=== PATIENT | male | born 1960 | race Caucasian/White ===

== ENCOUNTER 2019-08-06 10:32 | Inpatient (IN) | payer SELFPAY ==
[2019-08-06] MEDS ORDERED: ENOXAPARIN 100 MG/ML SYR SQ ONE (10:59)
[2019-08-06] MEDS ORDERED: METOPROLOL TARTRATE 5 MG/5 ML INJ IV ONE (11:00)
[2019-08-06] MEDS ORDERED: NA CHLORIDE 0.9% 1,000 ML ONE (11:00)
[2019-08-06 11:24] LABS: Basophils % 3.9 % (0-1.3); Hematocrit 46.5 % (39.6-49.0); Lymphocytes % 28.5 % (15.3-44.8); MPV 9.7 fL (7.6-11.3); RBC Red Blood Cell Count 5.16 M/uL (4.33-5.43)
[2019-08-06 11:27] LABS: Protime INR 1.11
[2019-08-06 11:49] LABS: ALT/SGPT 35 U/L (12-78); AST/SGOT 24 U/L (15-37); Albumin 3.8 g/dL (3.4-5.0); Alkaline Phosphatase 78 U/L (45-117); BUN Blood Urea Nitrogen 19 mg/dL (7-18); Bicarbonate 29 mmol/L (21-32); Bilirubin Direct 0.3 mg/dL (0-0.2); Bilirubin Total 0.9 mg/dL (0.2-1.0); Glucose Level 123 mg/dL (74-106); Magnesium 1.9 mg/dL (1.8-2.4); NT PRO-BNP 826 pg/mL (<125); Potassium 3.7 mmol/L (3.5-5.1); Protein, Total 7.8 g/dL (6.4-8.2); Sodium Level 142 mmol/L (136-145); Thyroid Stimulating Hormone 0.713 uIU/mL (0.360-3.740); Troponin (Emerg Dept Use Only) < 0.02 ng/mL (0.0-0.045)
--- NOTE | 2019-08-06 11:54 | RAD REPORT ---
EXAM DESCRIPTION: RAD - Chest Single View - 08/06/2019 11:41 am CLINICAL HISTORY: Atrial fibrillation COMPARISON: None. TECHNIQUE: AP portable chest image was obtained 1131 hours . FINDINGS: No peripheral mass, consolidation or edema. Heart and vasculature are normal. No measurabl e pleural effusion and no pneumothorax. No acute bony abnormality seen. No acute aortic findings susp ected. IMPRESSION: No acute cardiopulmonary process.
[2019-08-06] MEDS ORDERED: METOPROLOL TAR 50 MG TAB ONE (11:55)
--- NOTE | 2019-08-06 12:01 | ER ---
Nurse's Notes [facility] Name: Parrish Hickey Age: 59 yrs Sex: Male : 1960 Arrival Date: 08/06/2019 Time: 10:37 Bed 2 Private MD: Diagnosis: Atrial fibrillation and flutter-new onset Presentation: 08/06 10:41 Presenting complaint: Patient states: was having an outpatient EKG done as part of cardiac clearance for hernia repair and was in Afib RVR with no history, pt denies chest pain, SOB, palpitations. Transition of care: patient was not received from another setting of care. Onset of symptoms was August 06, 2019. Risk Assessment: Do you want to hurt yourself or someone else? Patient reports no desire to harm self or others. Initial Sepsis Screen: Does the patient meet any 2 criteria? No. Patient's initial sepsis screen is negative. Does the patient have a suspected source of infection? No. Patient's initial sepsis screen is negative. Care prior to arrival: None. 10:41 Method Of Arrival: Wheelchair 10:41 Acuity: QUANG 3 iw Historical: - Allergies: 10:45 No Known Allergies; iw - Home Meds: 10:45 Tribenzor 40-10-25 mg oral tab 1 tab once daily [Active]; iw - PMHx: 10:45 Hypertension; iw - PSHx: 10:45 Hernia repair; iw - Immunization history:: Adult Immunizations not up to date. - Social history:: Smoking status: Patient/guardian denies using tobacco. - Ebola Screening: : Patient negative for fever greater than or equal to 101.5 degrees Fahrenheit, and additional compatible Ebola Virus Disease symptoms Patient denies exposure to infectious person Patient denies travel to an Ebola-affected area in the 21 days before illness onset No symptoms or risks identified at this time. Screenin:20 Abuse screen: Denies threats or abuse. Denies injuries from another. Nutritional jl7 screening: No deficits noted. Tuberculosis screening: No symptoms or risk factors identified. Fall Risk IV access (20 points). Total Peña Fall Scale indicates No Risk (0-24 pts). Assessment: 10:45 General: Appears in no apparent distress. comfortable, well groomed, well developed, jl7 well nourished, Behavior is calm, cooperative, appropriate for age. Pain: Denies pain. Neuro: Level of Consciousness is awake, alert, obeys commands, Oriented to person, place, time, situation. Cardiovascular: Denies chest pain, fatigue, lightheadedness, nausea, palpitations, shortness of breath, Patient's skin is warm and dry. Rhythm is atrial fibrillation with rapid ventricular response. Respiratory: Airway is patent Respiratory effort is even, unlabored, Respiratory pattern is regular, symmetrical, Denies shortness of breath. GI: No signs and/or symptoms were reported involving the gastrointestinal system. : No signs and/or symptoms were reported regarding the genitourinary system. EENT: No signs and/or symptoms were reported regarding the EENT system. Derm: Skin is pink, warm \T\ dry. Musculoskeletal: No signs and/or symptoms reported regarding the musculoskeletal system. 11:57 Reassessment: Patient appears in no apparent distress at this time. No changes from jl7 previously documented assessment. Patient and/or family updated on plan of care and expected duration. Pain level reassessed. Patient is alert, oriented x 3, equal unlabored respirations, skin warm/dry/pink. 12:58 Reassessment: Patient appears in no apparent distress at this time. Patient and/or sg family updated on plan of care and expected duration. Pain level reassessed. Patient is alert, oriented x 3, equal unlabored respirations, skin warm/dry/pink. pt given diet tray at this time, tolerating well, no assistance needed at this time. Vital Signs: 10:45 BP 149 / 92; Pulse 123; Resp 18 S; Temp 98.2(TE); Pulse Ox 99% on R/A; Weight 99.34 kg; iw Height 5 ft. 10 in. (177.80 cm); Pain 0/10; 11:00 BP 142 / 100; Pulse 117; Resp 16 S; Pulse Ox 99% on R/A; Pain 0/10; jl7 11:15 BP 141 / 88; Pulse 96; Resp 16 S; Pulse Ox 99% on R/A; jl7 11:57 BP 132 / 82; Pulse 92; Resp 16 S; Pulse Ox 100% on R/A; jl7 10:45 Body Mass Index 31.42 (99.34 kg, 177.80 cm) iw ED Course: 10:37 Patient arrived in ED. sg 10:39 Sampson Flores, TITA is Primary Nurse. jl7 10:42 EKG done, by loader technician. reviewed by Guanakito Sorto MD. at1 10:43 Triage completed. iw 10:45 Patient has correct armband on for positive identification. Placed in gown. Bed in low jl7 position. Call light in reach. Side rails up X 1. color television console monitor on. Pulse ox on. NIBP on. 10:47 Arm band placed on. iw 10:49 Bryson Layton NP is PHCP. pm1 10:49 Cullen Perry MD is Attending Physician. pm1 10:57 Initial lab(s) drawn, by ga, sent to lab. Inserted saline lock: 18 gauge in right bb antecubital area, using aseptic technique. Blood collected. 11:45 XRAY Chest (1 view) In Process Unspecified. EDMS 11:59 Ross Mota MD is Hospitalizing Provider. pm1 13:05 No provider procedures requiring assistance completed. Patient admitted, IV remains in sg place. intact, No redness/swelling at site. Administered Medications: 11:07 Drug: NS 0.9% 1000 ml Route: IV; Rate: 1000 ml; Site: right upper arm; jl7 11:08 Drug: Lopressor 5 mg Route: IVP; Site: right upper arm; jl7 11:30 Follow up: Response: No adverse reaction; Cardiac rhythm changed jl7 11:17 Drug: Lovenox 1 mg/kg Route: Sub-Q; Site: right lower abdomen; jl7 11:57 Follow up: Response: No adverse reaction jl7 11:56 Drug: Lopressor (metoprolol TARTRATE) 50 mg Route: PO; jl7 11:57 Follow up: Response: No adverse reaction jl7 Outcome: 11:59 Decision to Hospitalize by Provider. pm1 13:05 Admitted to Tele accompanied by nurse, via wheelchair, room 430, on monitor, with sg chart, Report called to TITA Marrufo 13:05 Condition: stable 13:05 Instructed on the need for admit, safety practices, Demonstrated understanding of instructions. 13:19 Patient left the ED. jl7 Signatures: Dispatcher [employer] EDUT Siva Guerrero RN RN sg Ballard, Brenda, RN RN bb Williams, Irene, RN RN iw Gonzales Sonia, clinical informatics spec EKG Tat1 Bryson Layton, SUPERVISOR [employer]AL [employer]URNITURE [employer]SEMBLY SUPERVISOR METAL FURNITURE ASSEMBLY pm1 Sampson Flores, RN RN jl7
--- NOTE | 2019-08-06 12:01 | EDPHYS ---
Physician Documentation [facility] Name: Parrish Hickey Age: 59 yrs Sex: Male : 1960 Arrival Date: 08/06/2019 Time: 10:37 Bed 2 Private MD: ED Physician Cullen Perry HPI: 08/06 11:06 This 59 yrs old Male presents to ER via Wheelchair with complaints of A. Fib- pm1 new onset. 11:06 The patient presents with a history of new onset atrial fibrillation on ECG during pm1 preoperative work up for hernia repair. Context: The symptoms occur without known cause. Onset: The symptoms/episode began/occurred unknown, just discovered today. Modifying factors: The symptoms are aggravated by nothing. The symptoms are alleviated by nothing. 11:06 Associated signs and symptoms: The patient has no apparent associated signs or pm1 symptoms, Pertinent negatives: chest pain, fever, nausea, SOB, syncope, near-syncope, vomiting. Severity of symptoms: Pain is currently a 0 / 10. The patient has not experienced similar symptoms in the past. The patient has not recently seen a physician. Historical: - Allergies: 10:45 No Known Allergies; iw - Home Meds: 10:45 Tribenzor 40-10-25 mg oral tab 1 tab once daily [Active]; iw - PMHx: 10:45 Hypertension; iw - PSHx: 10:45 Hernia repair; iw - Immunization history:: Adult Immunizations not up to date. - Social history:: Smoking status: Patient/guardian denies using tobacco. - Ebola Screening: : Patient negative for fever greater than or equal to 101.5 degrees Fahrenheit, and additional compatible Ebola Virus Disease symptoms Patient denies exposure to infectious person Patient denies travel to an Ebola-affected area in the 21 days before illness onset No symptoms or risks identified at this time. ROS: 11:06 Constitutional: Negative for fever, chills, and weight loss, Eyes: Negative for injury, pm1 pain, redness, and discharge, ENT: Negative for injury, pain, and discharge, Neck: Negative for injury, pain, and swelling, Cardiovascular: Negative for chest pain, palpitations, and edema, Respiratory: Negative for shortness of breath, cough, wheezing, and pleuritic chest pain, Abdomen/GI: Negative for abdominal pain, nausea, vomiting, diarrhea, and constipation, Back: Negative for injury and pain, : Negative for injury, bleeding, discharge, and swelling, MS/Extremity: Negative for injury and deformity, Skin: Negative for injury, rash, and discoloration, Neuro: Negative for headache, weakness, numbness, tingling, and seizure. Exam: 11:06 Constitutional: This is a well developed, well nourished patient who is awake, alert, pm1 and in no acute distress. Head/Face: Normocephalic, atraumatic. Neck: Trachea midline, no thyromegaly or masses palpated, and no cervical lymphadenopathy. Supple, full range of motion without nuchal rigidity, or vertebral point tenderness. No Meningismus. Chest/axilla: Normal chest wall appearance and motion. Nontender with no deformity. No lesions are appreciated. Cardiovascular: Regular rate and rhythm with a normal S1 and S2. No gallops, murmurs, or rubs. Normal PMI, no JVD. No pulse deficits. Respiratory: Lungs have equal breath sounds bilaterally, clear to auscultation and percussion. No rales, rhonchi or wheezes noted. No increased work of breathing, no retractions or nasal flaring. Abdomen/GI: Soft, non-tender, with normal bowel sounds. No distension or tympany. No guarding or rebound. No evidence of tenderness throughout. Back: No spinal tenderness. No costovertebral tenderness. Full range of motion. Skin: Warm, dry with normal turgor. Normal color with no rashes, no lesions, and no evidence of cellulitis. MS/ Extremity: Pulses equal, no cyanosis. Neurovascular intact. Full, normal range of motion. 11:06 Neuro: Orientation: is normal, Motor: is normal, moves all fours. Vital Signs: 10:45 BP 149 / 92; Pulse 123; Resp 18 S; Temp 98.2(TE); Pulse Ox 99% on R/A; Weight 99.34 kg; iw Height 5 ft. 10 in. (177.80 cm); Pain 0/10; 11:00 BP 142 / 100; Pulse 117; Resp 16 S; Pulse Ox 99% on R/A; Pain 0/10; jl7 11:15 BP 141 / 88; Pulse 96; Resp 16 S; Pulse Ox 99% on R/A; jl7 11:57 BP 132 / 82; Pulse 92; Resp 16 S; Pulse Ox 100% on R/A; jl7 10:45 Body Mass Index 31.42 (99.34 kg, 177.80 cm) iw MDM: 10:49 Patient medically screened. pm1 11:56 Data reviewed: vital signs. Data interpreted: Pulse oximetry: on room air is 99 %. pm1 Interpretation: normal. Counseling: I had a detailed discussion with the patient and/or guardian regarding: the historical points, exam findings, and any diagnostic results supporting the discharge/admit diagnosis, lab results, radiology results, the need for further work-up and treatment in the hospital. 11:58 Physician consultation: Ross Mota MD was called at 12:01, was contacted at 12:02, pm1 regarding admission, patient's condition, and will see patient in ED. 08/06 10:55 Order name: Basic Metabolic Panel; Complete Time: 11:55 pm1 08/06 10:55 Order name: CBC with Diff; Complete Time: 17:37 pm1 08/06 10:55 Order name: LFT's; Complete Time: 11:55 pm1 08/06 10:55 Order name: Magnesium; Complete Time: 11:55 pm1 08/06 10:55 Order name: NT PRO-BNP; Complete Time: 11:55 pm1 08/06 10:55 Order name: PT-INR; Complete Time: 11:43 pm1 08/06 10:55 Order name: Troponin (emerg Dept Use Only); Complete Time: 11:55 pm1 08/06 10:55 Order name: XRAY Chest (1 view); Complete Time: 12:24 pm1 08/06 10:55 Order name: TSH; Complete Time: 11:55 pm1 08/06 11:59 Order name: CBC Smear Scan EDMS 08/06 12:34 Order name: Manual Differential; Complete Time: 17:37 EDMS 08/06 10:55 Order name: EKG; Complete Time: 10:56 pm1 08/06 10:55 Order name: Cardiac monitoring; Complete Time: 10:57 pm1 08/06 10:55 Order name: EKG - Nurse/Tech; Complete Time: 10:57 pm1 08/06 10:55 Order name: IV Saline Lock; Complete Time: 10:57 pm1 08/06 10:55 Order name: Labs collected and sent; Complete Time: 10:57 pm1 08/06 10:55 Order name: O2 Per Protocol; Complete Time: 10:57 pm1 08/06 10:55 Order name: O2 Sat Monitoring; Complete Time: 10:57 pm1 08/06 12:29 Order name: CONS Pharmacy Consult EDMS 08/06 12:29 Order name: Heart Healthy EDIN Administered Medications: 11:07 Drug: NS 0.9% 1000 ml Route: IV; Rate: 1000 ml; Site: right upper arm; jl7 11:08 Drug: Lopressor 5 mg Route: IVP; Site: right upper arm; jl7 11:30 Follow up: Response: No adverse reaction; Cardiac rhythm changed jl7 11:17 Drug: Lovenox 1 mg/kg Route: Sub-Q; Site: right lower abdomen; jl7 11:57 Follow up: Response: No adverse reaction jl7 11:56 Drug: Lopressor (metoprolol TARTRATE) 50 mg Route: PO; jl7 11:57 Follow up: Response: No adverse reaction jl7 Disposition: 21:22 Co-signature as Attending Physician, Cullen Perry MD. rn Disposition: 08/06/19 11:59 Hospitalization ordered by Ross Mota for Observation. Preliminary diagnosis is Atrial fibrillation and flutter - new onset. - Bed requested for Telemetry/MedSurg (observation). - Status is Observation. jl7 - Condition is Stable. - Problem is new. - Symptoms have improved. UTI on Admission? No Signatures: Dispatcher [employer] EDIN Magalipaige Hetal Quynh Saha, RN Cullen Lincoln MD MD rn Marinas, Patrick, [employer] SUPERVISOR pm1 Sampson Flores RN RN jl7 Corrections: (The following items were deleted from the chart) 12:48 11:59 Hospitalization Ordered by Ross Mota MD for Observation. Preliminary bd diagnosis is Atrial fibrillation and flutter - new onset. Bed requested for Telemetry/MedSurg (observation). Status is Observation. Condition is Stable. Problem is new. Symptoms have improved. UTI on Admission? No. pm1 13:19 12:48 08/06/2019 11:59 Hospitalization Ordered by Ross Mota MD for Observation. jl7 Preliminary diagnosis is Atrial fibrillation and flutter - new onset. Bed requested for Telemetry/MedSurg (observation). Status is Observation. Condition is Stable. Problem is new. Symptoms have improved. UTI on Admission? No. bd
[2019-08-06] MEDS ORDERED: ACETAMINOPHEN 500 MG TAB PO PRN (12:24)
[2019-08-06] MEDS ORDERED: ONDANSETRON 4 MG/2 ML VIAL IV PRN (12:24)
[2019-08-06] MEDS ORDERED: MORPHINE 2 MG/ML SYR IV PRN (12:24)
--- NOTE | 2019-08-06 12:28 | P.HP ---
Certification for Inpatient Patient admitted to: Observation With expected LOS: <2 Midnights Patient will require the following post-hospital care: None Practitioner: I am a practitioner with admitting privileges, knowledge of patient current condition, hospital course, and medical plan of care. Services: Services provided to patient in accordance with Admission requirements found in Title 42 Section 412.3 of the Code of Federal Regulations Patient History Date of Service: 08/06/19 Reason for admission: AFib with RVR History of Present Illness: 59-year-old male with past medical history hypertension admitted with AFib with RVR . Patient presented for EKG for preop screening for hernia repair and was found to have AFib with RVR in the ER and was given IV metoprolol to control the rate He was admitted for further management. Patient denies any chest pain or shortness of breath No fever no chills Denies any nausea vomiting or diaphoresis Denies any alcohol or caffeine intake Allergies No Known Allergies Allergy (Verified 08/06/19 12:32) Home medications list reviewed: Yes Home Medications: Olmesartan/Amlodipin/Hcthiazid [Cyxfcgm-Fhneuh-Dmks 40-10-25Mg] 1 tab PO DAILY 08/06/19 - Past Medical/Surgical History Past Medical History: Reviewed- Non-Contributory -: Hypertension Past Surgical History: Reviewed- Non-Contributory -: Hernia repair - Family History Family History: Reviewed- Non-Contributory - Social History Smoking Status: Never smoker Alcohol use: No Review of Systems 10-point ROS is otherwise unremarkable General: Unremarkable ENT: Unremarkable Respiratory: Unremarkable Physical Examination - Vital Signs Temperature: 98.2 F Blood Pressure: 149/92 Pulse: 112 - Physical Exam General: Alert, In no apparent distress, Obese HEENT: Atraumatic, Normocephalic Neck: Supple, 2+ carotid pulse no bruit Respiratory: Clear to auscultation bilaterally, Normal air movement Cardiovascular: Other (tachycardia ), Irregular heart rate/rhythm Capillary refill: <2 Seconds Gastrointestinal: Soft and benign, W/out hepatosplenomegaly Musculoskeletal: No clubbing, No swelling Integumentary: No rashes Neurological: Normal speech, Normal strength at 5/5 x4 extr Lymphatics: No axilla or inguinal lymphadenopathy Urinary: Other (no bladder distention ) External genitalia: Deferred Rectal: Deferred - Studies Laboratory Data (last 24 hrs) 11/19/19 10:50: PT 13.0 H, INR 1.11 08/06/19 10:50: WBC 6.9, Hgb 16.6, Hct 46.5, Plt Count 227 08/06/19 10:50: Sodium 142, Potassium 3.7, BUN 19 H, Creatinine 0.90, Glucose 123 H, Magnesium 1.9, Total Bilirubin 0.9, AST 24, ALT 35, Alkaline Phosphatase 78 Assessment and Plan - Problems (Diagnosis) (1) New onset a-fib Current Visit: Yes Status: Acute Plan: New onset AFib Monitor under telemetry Started on beta-enrico for rate control Patient denies any previous history Will get an echocardiogram T3-T4 and TSH levels along with lipid panel and A1c cardiology consult start on Lovenox and aspirin (2) Hypertension Current Visit: Yes Status: Chronic Plan: Continue home medications and titrate as needed (3) Obesity Current Visit: Yes Status: Chronic Plan: Advised lifestyle modification Discharge Plan: Home Plan to discharge in: 24 Hours - Advance Directives Does patient have a Living Will: No Does patient have a Durable POA for Healthcare: No Time Spent Managing Pts Care (In Minutes): 42
[2019-08-06 12:34] LABS: Anisocytosis 1+; Blood Morphology Comment NOTED (NOT SEEN); Macrocytosis 1+; Platelet Estimate ADEQ
[2019-08-06 13:35] VITALS: BMI 31.4
[2019-08-06 16:32] LABS: Urine Appearance CLEAR; Urine Bilirubin NEGATIVE (NEG); Urine Blood NEGATIVE (NEG); Urine Color DK YELLOW; Urine Glucose NEGATIVE (NEG); Urine Protein NEGATIVE (NEG); Urine Specific Gravity 1.025 (1.005-1.030); Urine Urobilinogen 0.2 mg/dL (0.2-1.0); Urine pH 6.5 (5.0-7.0)
[2019-08-06 17:03] LABS: Urine Bacteria <20 /HPF (NONE SEEN); Urine Culture Reflex Order NOT NEEDED; Urine Mucus 3+ /HPF (NONE SEEN)
[2019-08-06] MEDS: METOPROLOL TAR 50 MG TAB PO SCH (20:25)
[2019-08-06] MEDS: ENOXAPARIN 100 MG/ML SYR SQ SCH (20:26)
[2019-08-07 04:17] LABS: Absolute Lymphocytes (CBC) 2.6 K/uL (0.7-4.9); Basophils % 2.1 % (0-1.3); Hematocrit 45.4 % (39.6-49.0); Lymphocytes % 37.1 % (15.3-44.8); MPV 9.6 fL (7.6-11.3); RBC Red Blood Cell Count 4.97 M/uL (4.33-5.43)
[2019-08-07 04:50] LABS: BUN Blood Urea Nitrogen 20 mg/dL (7-18); Bicarbonate 26 mmol/L (21-32); Glucose Level 118 mg/dL (74-106); Potassium 3.5 mmol/L (3.5-5.1); Sodium Level 139 mmol/L (136-145)
[2019-08-07] MEDS ORDERED: [UNRECOGNIZED DRUG - OTHER] PO SCH (09:00)
[2019-08-07] MEDS ORDERED: AMLODIPIN PO SCH (09:00)
[2019-08-07] MEDS ORDERED: VALSARTAN 160 MG TAB PO SCH (09:00)
[2019-08-07] MEDS ORDERED: HCTHIAZID PO SCH (09:00)
[2019-08-07] MEDS ORDERED: OLMESARTAN PO SCH (09:00)
[2019-08-07] MEDS ORDERED: hydroCHLOROthiazide 25 MG TAB PO SCH (09:00)
[2019-08-07] MEDS ORDERED: AMLODIPINE 10 MG TAB PO SCH (09:00)
[2019-08-07] MEDS ORDERED: ASPIRIN EC 81 MG TAB PO SCH (09:00)
[2019-08-07 09:19] VITALS: O2SAT 96
[2019-08-07] MEDS: ENOXAPARIN 100 MG/ML SYR SQ SCH (09:19)
[2019-08-07] MEDS: METOPROLOL TAR 50 MG TAB PO SCH (09:20)
--- NOTE | 2019-08-07 12:03 | P.DS ---
Admission Date: 08/06/19 Discharge Date: 08/07/19 Disposition: ROUTINE DISCHARGE Discharge Condition: GOOD Reason for Admission: AFib with RVR - Problems (1) New onset a-fib Status: Acute (2) Hypertension Status: Chronic (3) Obesity Status: Chronic Brief History of Present Illness: 59-year-old male with past medical history hypertension admitted with AFib with RVR . Patient presented for EKG for preop screening for hernia repair and was found to have AFib with RVR in the ER and was given IV metoprolol to control the rate He was admitted for further management. Patient denies any chest pain or shortness of breath No fever no chills Denies any nausea vomiting or diaphoresis Denies any alcohol or caffeine intake Hospital Course: He was admitted and was monitor under telemetry. He was start on beta enrico and also anticoagulation. He underwent an echocardiogram and a cardiology consult. Cardiology recommended starting him on Toprol-XL and Xarelto . He was cleared for surgery for hernia repair by cardiology. It was recommended to start on anticoagulation after the surgery. He was in AFib with rate control throughout hospital course. He wanted to go home and is being discharged home today in a stable condition with advice to follow up with PCP in 1 week and also with Cardiology in 1-2 weeks Vital Signs/Physical Exam: Temp Pulse Resp BP Pulse Ox 97.4 F 104 H 20 153/72 H 95 08/07/19 08:00 08/07/19 09:21 08/07/19 08:00 08/07/19 09:21 08/07/19 08:00 General: Alert, In no apparent distress, Obese HEENT: Atraumatic, Normocephalic Neck: Supple, 2+ carotid pulse no bruit Respiratory: Clear to auscultation bilaterally Cardiovascular: Irregular heart rate/rhythm Gastrointestinal: Soft and benign, W/out hepatosplenomegaly Neurological: Normal strength at 5/5 x4 extr Laboratory Data at Discharge: WBC 7.1 K/uL (4.3-10.9) 08/07/19 03:51 Hgb 15.8 g/dL (13.6-17.9) 08/07/19 03:51 Hct 45.4 % (39.6-49.0) 08/07/19 03:51 Plt Count 216 K/uL (152-406) 08/07/19 03:51 PT 13.0 SECONDS (9.5-12.5) H 08/06/19 10:50 INR 1.11 08/06/19 10:50 Sodium 139 mmol/L (136-145) 08/07/19 03:51 Potassium 3.5 mmol/L (3.5-5.1) 08/07/19 03:51 BUN 20 mg/dL (7-18) H 08/07/19 03:51 Creatinine 0.78 mg/dL (0.55-1.3) 08/07/19 03:51 Glucose 118 mg/dL (74-106) H 08/07/19 03:51 Magnesium 1.9 mg/dL (1.8-2.4) 08/06/19 10:50 Total Bilirubin 0.9 mg/dL (0.2-1.0) 08/06/19 10:50 AST 24 U/L (15-37) 08/06/19 10:50 ALT 35 U/L (12-78) 08/06/19 10:50 Alkaline Phosphatase 78 U/L (45-117) 08/06/19 10:50 Home Medications: Olmesartan/Amlodipin/Hcthiazid [Zpyfyba-Squtfj-Gzhs 40-10-25Mg] 1 tab PO DAILY 08/06/19 Metoprolol Succinate 50 mg PO DAILY #30 tab.er.24h 08/07/19 New Medications: Metoprolol Succinate 50 mg PO DAILY #30 tab.er.24h Diet: AHA Activity: Ad sridhar Followup: Froilan Robert MD [ACTIVE - CAN ADMIT] - 1-2 Weeks (Fruit And Vegetable Inspector- as per physician instruction) Time spent managing pt's care (in minutes): 35
--- NOTE | 2019-08-07 12:13 | CON ---
Date of Consultation: 08/07/2019 Reason For Consultation: Atrial fibrillation. History Of Present Illness: Mr. Hickey is a 59-year-old white male, no previous cardiac history. He has a history of hypertension, for which he takes Tribenzor. Has no cardiac symptoms. He denied chest pain, shortness of breath, nausea, vomiting, diaphoresis, PND, orthopnea, pedal edema, palpitat ions, or syncope. He was having a preop EKG for hernia surgery by Dr. Solano in [facility] and w as found to have atrial fibrillation. He was sent to the emergency room. He was never aware of his heart palpitating. Unknown duration of atrial fibrillation. The patient is planning to have a ventr al hernia surgery prior to a job that he is going to get in [place]. This surgery is schedule d for this Monday in 2 days. Past Medical History: As stated above. Allergies: NONE. Review of Systems: Negative. Social History: Negative. Family History: Negative. Medications: Tribenzor. Physical Examination: Vital Signs: Stable. Atrial fibrillation at 100. HEENT: Negative. Neck: Supple. No bruit. Chest: Clear. Cardiac: Revealed atrial fibrillation. No murmurs, gallops, or rubs. Abdomen: Benign. Extremities: Revealed no clubbing, cyanosis, or edema. Diagnostic Data: Pretty normal. His chest x-ray was negative. EKG showed atrial fibrillation. BNP was 826. Impression And Plan: Atrial fibrillation, persistent, unknown duration, asymptomatic. I think Mr. Hickey has an echo pending today. We will see what that shows prior to make any final decisions. I think he needs to continue her Tribenzor. I will add a low-dose metoprolol to his regimen. He can start aspirin for now. He can go ahead and have the surgery done in 2 days. After that, I am going to give him a prescription today for Xarelto. We can start the Xarelto right after his surgery, and I will see him after that and we will deal with the atrial fibrillation later. He will eventually n eed an outpatient stress test and make a decision regarding cardioversion or keep him in rate control on the Xarelto. RANDY/MODL Voice ID: [id number] Report ID: [id number]
[2019-08-07 13:58] VITALS: BP 137/77; TEMP 97.6
--- NOTE | 2019-08-08 08:14 | ECHO ---
HEIGHT: 5 ft 10 in WEIGHT: 219 lb 0 oz DATE OF STUDY: 08/07/[address]: Yousif Mota DO 2-DIMENSIONAL: YES M.MODE: YES DOPPLER: YES COLOR FLOW: YES TDS: NO PORTABLE: NO DEFINITY: NO BUBBLE STUDY: NO DIAGNOSIS: ATRIAL FIBRILLATION WITH RAPID VENTRICULAR REPONSE CARDIAC HISTORY: CATHERIZATION: NO SURGERY: NO PROSTHETIC VALVE: NO PACEMAKER: NO MEASUREMENTS (cm) DIASTOLIC (NORMALS) SYSTOLIC (NORMALS) IVSd 1.3 (0.6-1.2) LA Diam 3.7 (1.9-4.0) LVEF 51% LVIDd 5.7 (3.5-5.7) LVIDs 4.7 (2.0-3.5) %FS 18% LVPWd 1.3 (0.6-1.2) Ao Diam 2.6 (2.0-3.7) 2 DIMENSIONAL ASSESSMENT: RIGHT ATRIUM: NORMAL LEFT ATRIUM: NORMAL RIGHT VENTRICLE: NORMAL LEFT VENTRICLE: NORMAL TRICUSPID VALVE: NORMAL MITRAL VALVE: NORMAL PULMONIC VALVE: NORMAL AORTIC VALVE: NORMAL PERICARDIAL EFFUSION: NONE AORTIC ROOT: NORMAL LEFT VENTRICULAR WALL MOTION: PARADOXICAL SEPTUM. DOPPLER/COLOR FLOW: NORMAL COMMENTS: NORMAL LEFT VENTRICULAR EJECTION SIZE AND FUNCTION. PARADOXICAL SEPTUM. NORMAL LEFT ATRIAL SIZE. NO CLOT. ATRIAL FIBRILLATION. TECHNOLOGIST: Emeka LOPEZ
== END 2019-08-07 13:33 | disposition home or self-care (01) | DRG 310 ==
LOC: ER 10:32 → ERHOLD 12:26 → 4TH 13:05
PROVIDERS: ADMIT Family Medicine; ATTEND Family Medicine
DX: I48.91 Unspecified atrial fibrillation (principal); I10 Essential (primary) hypertension; E66.9 Obesity, unspecified; Z68.31 Body mass index [BMI] 31.0-31.9, adult
CPT/HCPCS: 36415; 71045; 80048; 80076; 81001; 83735; 83880; 84443; 84484; 85025; 85610; 93005; 93306; 94760; 96372; 96374; 99285; J1650; J7030

== ENCOUNTER 2022-03-27 12:14 | Inpatient (IN) | payer SELFPAY ==
[2022-03-27 14:06] LABS: Protime INR 1.04
[2022-03-27 14:08] LABS: Albumin 3.8 g/dL (3.4-5.0); Bilirubin Direct 0.2 mg/dL (0-0.2); Bilirubin Total 0.7 mg/dL (0.2-1.0); Potassium 3.9 mmol/L (3.5-5.1)
[2022-03-27 14:12] LABS: Absolute Lymphocytes (CBC) 1.6 K/uL (0.7-4.9); Hematocrit 48.4 % (39.6-49.0); Lymphocytes % 18.9 % (15.3-44.8); MCV 91.7 fL (80-100); MPV 9.8 fL (7.6-11.3); RBC Red Blood Cell Count 5.28 M/uL (4.33-5.43)
--- NOTE | 2022-03-27 14:13 | RAD REPORT ---
EXAM DESCRIPTION: RAD - Chest Single View - 03/27/2022 2:07 pm CLINICAL HISTORY: CHEST PAIN Chest pain. COMPARISON: Chest Single View dated 08/06/2019 FINDINGS: Portable technique limits examination quality. The lungs are grossly clear. The heart is normal in size. No displaced fractures. IMPRESSION: No acute intrathoracic process suspected.
[2022-03-27] MEDS ORDERED: ASPIRIN 81 MG CHEWABLE TABLET ONE (14:15)
[2022-03-27] MEDS ORDERED: LABETALOL 20 MG/4ML SYRINGE IV ONE (14:16)
--- NOTE | 2022-03-27 15:15 | EDPHYS ---
Physician Documentation [facility] Name: Parrish Hickey Age: 61 yrs Sex: Male : 1960 Arrival Date: 03/27/2022 Time: 12:14 Bed 5 Private MD: CINDY STARR ED Physician Cullen Perry HPI: 03/27 13:28 This 61 yrs old Male presents to ER via Ambulatory with complaints of High Blood en Pressure, Headache, Shortness Of Breath. 13:28 61-year-old male with history of hypertension, A. fib not on anticoagulation therapy en presents to ED with elevated blood pressure today associated with shortness of breath, palpitations and headache. Patient reports systolic pressure at home of 185/118 and heart rate of 111. He reports right-sided chest heaviness radiating to the right arm associated with shortness of breath at rest and dyspnea on exertion. Mild peripheral edema but improved from baseline. No orthopnea. He denies fever, chills, nausea, vomiting. No abdominal pain. . Historical: - Allergies: 12:52 No Known Allergies; iw - Home Meds: 12:52 amlodipine 10 mg tab 1 tab once daily [Active]; olmesartan 40 mg oral tab 1 tab once iw daily [Active]; hydrochlorothiazide 25 mg Oral tab 1 tab once daily [Active]; metoprolol succinate 50 mg oral CSpX 1 cap once daily [Active]; - PMHx: 12:52 Hypertension; Atrial fibrillation; iw - PSHx: 12:53 hernia; iw - Immunization history:: Client reports having NOT received the Covid vaccine. - Social history:: Smoking status: . ROS: 13:28 Constitutional: Negative for fever, chills, and weight loss. en 13:28 Constitutional: Negative for body aches, chills, fatigue, fever. 13:28 Eyes: Negative for blurry vision, vision loss, visual disturbance. 13:28 Neck: Negative for pain with movement, pain at rest. 13:28 Cardiovascular: Positive for chest pain, edema, palpitations, Negative for orthopnea, paroxysmal nocturnal dyspnea. 13:28 Respiratory: Positive for shortness of breath, Negative for cough, sputum production, wheezing. 13:28 Abdomen/GI: Negative for abdominal pain, nausea and vomiting. 13:28 All other systems are negative. Exam: 13:28 Constitutional: This is a well developed, well nourished patient who is awake, alert, en and in no acute distress. Head/Face: Normocephalic, atraumatic. 13:28 Constitutional: The patient appears in no acute distress, alert, awake. 13:28 Eyes: Conjunctiva: normal, no exudate, no injection. 13:28 ENT: Mouth: Lips: normal, Posterior pharynx: is normal, no erythema, no exudate. 13:28 Neck: ROM/movement: is normal, is supple. 13:28 Cardiovascular: Rate: tachycardic, actual rate is 101 bpm, Rhythm: irregularly irregular, Pulses: no pulse deficits are appreciated, Heart sounds: normal, no murmur, no rub, no gallop. 13:28 Cardiovascular: Edema: 1+ edema to level of left midcalf and right midcalf. 13:28 Respiratory: the patient does not display signs of respiratory distress, Respirations: normal, Breath sounds: are clear throughout, no rales, rhonchi, no stridor, no wheezing. 13:28 Abdomen/GI: Inspection: scar(s), are noted in the midline open ventral hernia repair, Bowel sounds: normal, in all quadrants, Palpation: abdomen is soft and non-tender, in all quadrants, Hernia: noted in the epigastric area and paraumbilical area. 13:28 Back: ROM is normal, CVA tenderness, is absent. 13:28 Skin: no rash present. 13:28 Neuro: Orientation: no acute changes, to person, place \\T\\ time. Mentation: appropriate for stated age. 13:28 Psych: Behavior/mood is pleasant, cooperative. Vital Signs: 12:50 BP 171 / 087; Pulse 101; Resp 18; Pulse Ox 98% on R/A; Weight 102.06 kg; Height 5 ft. 9 iw in. (175.26 cm); 14:27 BP 146 / 68; Pulse 91; Resp 17; Pulse Ox 98% on R/A; jd3 18:04 BP 155 / 77; Pulse 96; Resp 16 S; Pulse Ox 97% on R/A; jd3 18:50 BP 145 / 78; Pulse 85; Resp 16; Pulse Ox 97% on R/A; jd3 12:50 Body Mass Index 33.23 (102.06 kg, 175.26 cm) iw MDM: 12:41 Patient medically screened. en 13:28 Differential diagnosis: hypertensive crisis, Malignant HTN, ACS, pulmonary edema, a fib en RVR. Data reviewed: vital signs, nurses notes, lab test result(s), EKG, and as a result, I will. ED course: Pt's HR 80's-101 in ED. Will give Labetolol for HTN since not consistently RVR. 15:13 ED course: accepted by Dr Hinton. en 03/27 13:28 Order name: COVID-19 SARS RT PCR (Document "Date of Onset" if Symptomatic); Complete en Time: 14:59 03/27 13:28 Order name: Troponin HS; Complete Time: 14:59 03/27 13:28 Order name: Basic Metabolic Panel; Complete Time: 14:59 03/27 13:28 Order name: CBC with Diff; Complete Time: 14:59 03/27 13:28 Order name: LFT's; Complete Time: 14:59 03/27 13:28 Order name: NT PRO-BNP; Complete Time: 14:59 03/27 13:28 Order name: PT-INR; Complete Time: 14:59 03/27 13:28 Order name: XRAY Chest (1 view); Complete Time: 14:59 03/27 15:54 Order name: CBC with Automated Diff [facility] 03/27 15:54 Order name: CBC with Automated Diff [facility] 03/27 15:54 Order name: Comprehensive Metabolic Panel [facility] 03/27 15:54 Order name: Comprehensive Metabolic Panel [facility] 03/27 15:54 Order name: Lipid Profile [facility] 03/27 15:54 Order name: Lipid Profile [facility] 03/27 13:28 Order name: EKG - Nurse/Tech; Complete Time: 13:45 03/27 13:28 Order name: Cardiac monitoring; Complete Time: 13:30 03/27 13:28 Order name: IV Saline Lock; Complete Time: 13:45 03/27 13:28 Order name: Labs collected and sent; Complete Time: 13:45 03/27 13:28 Order name: O2 Per Protocol; Complete Time: 13:30 03/27 13:28 Order name: O2 Sat Monitoring; Complete Time: 13:30 03/27 15:54 Order name: CONS Physician Consult EDMS 03/27 15:54 Order name: Heart Healthy EDMS Administered Medications: 14:20 Drug: Aspirin Chewable Tablet 324 mg Route: PO; jd3 15:20 Follow up: Response: No adverse reaction jd3 14:20 Drug: Labetalol 10 mg Route: IV; Rate: calculated rate; Site: right forearm; jd3 15:20 Follow up: Response: No adverse reaction; IV Status: Completed infusion jd3 Disposition: 03/28 06:59 Co-signature as Attending Physician, Cullen Perry MD. rn Disposition Summary: 03/27/22 15:14 Hospitalization Ordered Hospitalization Status: Inpatient Admission en Provider: Omid Hinton Location: Telemetry/MedSurg (observation) en Condition: Guarded en Problem: an acute exacerbation en Symptoms: have improved en Bed/Room Type: Standard en Room Assignment: 228(03/27/22 18:42) em1 Diagnosis - Chest pain, unspecified en - HTN urgency en Forms: - Medication Reconciliation Form en - SBAR form en Signatures: Dispatcher [employer] Quynh Hollis RN RN iw Nieto, Roman, MD MD rn Martinez, Eric em1 Tello Quintero RN RN jd3 Newkirk, Elizabeth, PA PA en Corrections: (The following items were deleted from the chart) 03/27 18:42 15:14 en em1
--- NOTE | 2022-03-27 15:15 | ER ---
Nurse's Notes [facility] Name: Parrish Hickey Age: 61 yrs Sex: Male : 1960 Arrival Date: 03/27/2022 Time: 12:14 Bed 5 Private MD: CINDY STARR Diagnosis: Chest pain, unspecified;HTN urgency Presentation: 03/27 12:50 Chief complaint: Patient states: BP has been high all morning, had a headache, pulse iw got high, his right arm started hurting , took his BP medicine amlodipine, HCTZ, olmesartan and metoprolol , did not get better, and now he is having ahard time breathing. Coronavirus screen: At this time, the client does not indicate any symptoms associated with coronavirus-19. Ebola Screen: Patient negative for fever greater than or equal to 101.5 degrees Fahrenheit, and additional compatible Ebola Virus Disease symptoms Patient denies exposure to infectious person. Patient denies travel to an Ebola-affected area in the 21 days before illness onset. No symptoms or risks identified at this time. Initial Sepsis Screen: Does the patient meet any 2 criteria? No. Patient's initial sepsis screen is negative. Does the patient have a suspected source of infection? No. Patient's initial sepsis screen is negative. Risk Assessment: Do you want to hurt yourself or someone else? Patient reports no desire to harm self or others. Onset of symptoms was March 27, 2022. 12:50 Method Of Arrival: Ambulatory iw 12:50 Acuity: QUANG 3 iw Historical: - Allergies: 12:52 No Known Allergies; iw - Home Meds: 12:52 amlodipine 10 mg tab 1 tab once daily [Active]; olmesartan 40 mg oral tab 1 tab once iw daily [Active]; hydrochlorothiazide 25 mg Oral tab 1 tab once daily [Active]; metoprolol succinate 50 mg oral CSpX 1 cap once daily [Active]; - PMHx: 12:52 Hypertension; Atrial fibrillation; iw - PSHx: 12:53 hernia; iw - Immunization history:: Client reports having NOT received the Covid vaccine. - Social history:: Smoking status: . Screenin:28 Abuse screen: Denies threats or abuse. Nutritional screening: No deficits noted. jd3 Tuberculosis screening: No symptoms or risk factors identified. Fall Risk Ambulatory Aid- None/Bed Rest/Nurse Assist (0 pts). Gait- Normal/Bed Rest/Wheelchair (0 pts) Mental Status- Oriented to own ability (0 pts). Total Peña Fall Scale indicates No Risk (0-24 pts). Assessment: 13:51 General: Appears in no apparent distress. comfortable, Behavior is calm, cooperative. em6 Pain: Complains of pain in chest Pain radiates to right arm Pain currently is 3 out of 10 on a pain scale. Quality of pain is described as radiating, Pain began patient states "pain started in the morning upon waking up". Neuro: Wasserman Agitation-Sedation Scale (RASS): 0 - Alert and Calm Level of Consciousness is awake, alert, obeys commands, Oriented to person, place, time, situation. Cardiovascular: Reports chest pain, shortness of breath, since in the morning upon waking up Heart tones present Capillary refill < 3 seconds Patient's skin is warm and dry. Pulses are all present. Rhythm is atrial fibrillation Chest pain radiates to right. Respiratory: Reports shortness of breath at rest Airway is patent Respiratory effort is even, unlabored, Respiratory pattern is regular, Breath sounds are clear. GI: No signs and/or symptoms were reported involving the gastrointestinal system. : No signs and/or symptoms were reported regarding the genitourinary system. EENT: No signs and/or symptoms were reported regarding the EENT system. Derm: No signs and/or symptoms reported regarding the dermatologic system. Musculoskeletal: No signs and/or symptoms reported regarding the musculoskeletal system. 14:28 Reassessment: No changes from previously documented assessment. Patient and/or family jd3 updated on plan of care and expected duration. Pain level reassessed. Patient is alert, oriented x 3, equal unlabored respirations, skin warm/dry/pink. 15:30 Reassessment: Patient appears in no apparent distress at this time. Patient and/or jd3 family updated on plan of care and expected duration. Pain level reassessed. Patient is alert, oriented x 3, equal unlabored respirations, skin warm/dry/pink. 16:00 Reassessment: Patient appears in no apparent distress at this time. No changes from jd3 previously documented assessment. Patient and/or family updated on plan of care and expected duration. Pain level reassessed. Patient is alert, oriented x 3, equal unlabored respirations, skin warm/dry/pink. 17:15 Reassessment: Patient appears in no apparent distress at this time. No changes from jd3 previously documented assessment. Patient and/or family updated on plan of care and expected duration. Pain level reassessed. Patient is alert, oriented x 3, equal unlabored respirations, skin warm/dry/pink. 18:04 Reassessment: Patient appears in no apparent distress at this time. No changes from jd3 previously documented assessment. Patient and/or family updated on plan of care and expected duration. Pain level reassessed. Patient is alert, oriented x 3, equal unlabored respirations, skin warm/dry/pink. awaiting admission. 18:50 Reassessment: Patient appears in no apparent distress at this time. Patient and/or jd3 family updated on plan of care and expected duration. Pain level reassessed. Patient is alert, oriented x 3, equal unlabored respirations, skin warm/dry/pink. awaiting admission. Vital Signs: 12:50 BP 171 / 087; Pulse 101; Resp 18; Pulse Ox 98% on R/A; Weight 102.06 kg; Height 5 ft. 9 iw in. (175.26 cm); 14:27 BP 146 / 68; Pulse 91; Resp 17; Pulse Ox 98% on R/A; jd3 18:04 BP 155 / 77; Pulse 96; Resp 16 S; Pulse Ox 97% on R/A; jd3 18:50 BP 145 / 78; Pulse 85; Resp 16; Pulse Ox 97% on R/A; jd3 12:50 Body Mass Index 33.23 (102.06 kg, 175.26 cm) iw ED Course: 12:14 Patient arrived in ED. am2 12:15 CINDY STARR is Private Physician. am2 12:41 Angela Doherty PA is PHCP. en 12:41 Cullen Perry MD is Attending Physician. en 12:52 Triage completed. iw 12:53 Arm band placed on. iw 13:07 Tello Quintero, TITA is Primary Nurse. jd3 13:45 Inserted saline lock: 20 gauge in left forearm, using aseptic technique. Blood jd3 collected. 14:08 XRAY Chest (1 view) In Process Unspecified. EDMS 14:28 Patient has correct armband on for positive identification. Bed in low position. Call jd3 light in reach. Side rails up X 1. Adult w/ patient. Client placed on continuous cardiac and pulse oximetry monitoring. NIBP monitoring applied. hospital monitor on. Pulse ox on. NIBP on. 15:14 Omid Hinton MD is Hospitalizing Provider. en 19:08 Primary Nurse role handed off by Tello Quintero, TITA tw5 19:08 Flor Oglesby is Primary Nurse. tw5 19:50 No provider procedures requiring assistance completed. Patient admitted, IV remains in kl place. Administered Medications: 14:20 Drug: Aspirin Chewable Tablet 324 mg Route: PO; jd3 15:20 Follow up: Response: No adverse reaction jd3 14:20 Drug: Labetalol 10 mg Route: IV; Rate: calculated rate; Site: right forearm; jd3 15:20 Follow up: Response: No adverse reaction; IV Status: Completed infusion jd3 Medication: 14:28 VIS not applicable for this client. jd3 Outcome: 15:14 Decision to Hospitalize by Provider. en 19:18 Admitted to Med/surg Report called to attempted to call report. Was told nurse is not tw5 ready yet. 19:50 Admitted to Med/surg Report called to ZENY RIVERS 19:51 Condition: stable 19:51 Patient left the ED. Signatures: Dispatcher [employer] EDMS Eli Mcmillan, RN Quynh Marr, RN Sonia Summers am2 Tello Quintero RN RN jd3 Wood, Tiffany tw5 Angela Doherty PA PA en Martinez, Erika, RN RN em6
--- NOTE | 2022-03-27 15:50 | P.HP ---
Certification for Inpatient With expected LOS: >2 Midnights Practitioner: I am a practitioner with admitting privileges, knowledge of patient current condition, hospital course, and medical plan of care. Services: Services provided to patient in accordance with Admission requirements found in Title 42 Section 412.3 of the Code of Federal Regulations Patient History Date of Service: 03/27/22 Reason for admission: Shortness of breath severe hypertension History of Present Illness: Patient is 61 years of age with a history of hypertension and A. maddy has been having progressive dyspnea for the past week came into the hospital suddenly became worse started having some chest pressure unable to breathe some radiation of discomfort to his right arm blood pressure was significantly elevated patient is compliant with his medication is not on any anticoagulants does not follow-up with any physicians currently here moved from [facility] is feeling a little better Allergies No Known Allergies Allergy (Verified 08/06/19 12:32) Home Medications: Olmesartan/Amlodipin/Hcthiazid [Sfleicy-Bfwlsc-Pgdx 40-10-25Mg] 1 tab PO DAILY 08/06/19 Metoprolol Succinate 50 mg PO DAILY #30 tab.er.24h 08/07/19 - Past Medical/Surgical History Diabetic: No -: Hypertension -: Atrial fibrillation -: Hernia repair - Social History Alcohol use: No CD- Drugs: No Caffeine use: No Review of Systems 10-point ROS is otherwise unremarkable Physical Examination - Vital Signs Blood Pressure: 171/87 Pulse: 91 Respirations: 18 Pulse Ox (%): 98 (ra) - Physical Exam General: Alert, In no apparent distress, Oriented x3 HEENT: Atraumatic Neck: Supple Respiratory: Clear to auscultation bilaterally Cardiovascular: No edema, Regular rate/rhythm, Irregular heart rate/rhythm Gastrointestinal: Normal bowel sounds, Soft and benign Musculoskeletal: No clubbing, No swelling Neurological: Normal gait, Normal speech, Normal strength at 5/5 x4 extr - Studies Laboratory Data (last 24 hrs) 03/27/22 13:40: PT 11.5, INR 1.04 03/27/22 13:40: WBC 8.2, Hgb 17.0, Hct 48.4, Plt Count 144 L 03/27/22 13:40: Sodium 140, Potassium 3.9, BUN 13, Creatinine 0.69, Glucose 129 H, Total Bilirubin 0.7, AST 39 H, ALT 47, Alkaline Phosphatase 74 Assessment and Plan - Problems (Diagnosis) (1) Hypertension Current Visit: No Status: Chronic Plan: Patient is 61 years of age admitted with hypertension progressive shortness of breath and some chest discomfort is compliant with his medication and he takes amlodipine losartan beta-enrico and hydrochlorothiazide no prior history of coronary artery disease chemistries all reviewed (2) Atrial fibrillation Current Visit: Yes Status: Acute Plan: Patient has a history of atrial fibrillation rate controlled with metoprolol is not on any anticoagulation has not 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
[2022-03-27] MEDS ORDERED: MORPHINE 2 MG/ML SYR IV PRN (15:51)
[2022-03-27] MEDS ORDERED: ACETAMINOPHEN 500 MG TAB PO PRN (15:51)
[2022-03-27] MEDS ORDERED: FUROSEMIDE 20 MG/ 2ML VIAL IV ONE (15:54)
--- NOTE | 2022-03-27 19:59 | CON ---
Date of Consultation: 03/27/2022 Reason For Consultation: Chest pain, shortness of breath. History Of Present Illness: A -oswn-taq male with history of atrial fibrillation, hyperten simone, presented with progressive shortness of breath and palpitations and chest discomfort. Never galindo d any history of heart attack or any cardiac catheterization. Past Medical History: Hypertension, atrial fibrillation. Medications: Refer to reconciliation sheet for detailed list. Allergies: NO KNOWN DRUG ALLERGIES. Past Surgical History: Hernia repair. Family History: No premature coronary artery disease or cancer. Social History: He does not smoke or drink. Does not use any. Review of Systems: All systems reviewed and they were negative except for what mentioned in HPI. Physical Examination: Vital Signs: Reviewed. Head and Neck: Pupils are equal, reactive to light. Intact eye movements. No JVD. No cervical lym phadenopathy. Neck is supple. Thyroid is not enlarged. Lungs: Clear to auscultation bilaterally. No rhonchi, wheezing, or crackles. No accessory muscle u se. Heart: Irregularly irregular. No extra sounds. Abdomen: Soft, nontender. Bowel sounds positive. No organomegaly. No masses or hernia. No rigidi ty or rebound. Extremities: Edema bilaterally. No clubbing or cyanosis. Intact pulses. Skin: No rash. Neurologic: Alert, awake, oriented x3. No acute focal deficits appreciated. Lymph Nodes: No cervical or axillary lymphadenopathy. Investigations: Creatinine is 0.69, BUN 13, sodium 140, and the hemoglobin is 17, and his troponin i s 23. Assessment And Recommendations: 1.Atrial fibrillation, rapid ventricular response initially. Start the patient on sotalol 40 mg p.o . twice a day and the patient will need Eliquis 5 mg twice a day, continue that, and we will adjust t he dose of sotalol based on the response. 2.Congestive heart failure. Please obtain echocardiogram and nuclear stress test tomorrow and start him on Lasix 40 mg by mouth daily. 3.Chest pain with acute heart failure. Recommend nuclear stress test and an echo tomorrow morning. SR/MODL Voice ID: [id number] Report ID: [id number]
[2022-03-27 20:07] VITALS: O2SAT 97
[2022-03-27] MEDS: APIXABAN 5 MG TABLET PO SCH (21:17)
[2022-03-27 21:49] VITALS: BMI 34.3
[2022-03-28 05:49] LABS: Absolute Lymphocytes (CBC) 1.8 K/uL (0.7-4.9); Hematocrit 45.7 % (39.6-49.0); Lymphocytes % 25.5 % (15.3-44.8); MCV 91.8 fL (80-100); MPV 9.9 fL (7.6-11.3); RBC Red Blood Cell Count 4.97 M/uL (4.33-5.43)
[2022-03-28 06:09] LABS: Albumin 3.4 g/dL (3.4-5.0); Potassium 3.4 mmol/L (3.5-5.1); Protein, Total 6.4 g/dL (6.4-8.2)
--- NOTE | 2022-03-28 09:06 | P.PN ---
Subjective Date of Service: 03/28/22 Chief Complaint: Shortness of breath last night Subjective: Improving (Patient is improving he still experience some shortness of breath improved with oxygen denies any chest pain) Review of Systems Unremarkable Physical Examination - Vital Signs Temperature: 97.6 F Blood Pressure: 142/70 Pulse: 83 Respirations: 17 Pulse Ox (%): 97 - Physical Exam General: Alert, Oriented x3 Neck: Supple Respiratory: Clear to auscultation bilaterally, Friction rub Cardiovascular: Regular rate/rhythm - Studies Laboratory Data (last 24 hrs) 03/27/22 13:40: PT 11.5, INR 1.04 03/27/22 13:40: WBC 8.2, Hgb 17.0, Hct 48.4, Plt Count 144 L 03/27/22 13:40: Sodium 140, Potassium 3.9, BUN 13, Creatinine 0.69, Glucose 129 H, Total Bilirubin 0.7, AST 39 H, ALT 47, Alkaline Phosphatase 74 Assessment And Plan - Current Problems (Diagnosis) (1) Hypertension Current Visit: No Status: Chronic Plan: Blood pressure is controlled (2) Atrial fibrillation Current Visit: Yes Status: Acute Plan: Rate controlled patient is on anticoagulation Qualifiers: Atrial fibrillation type: unspecified chronic Qualified Code(s): I48.20 - Chronic atrial fibrillation, unspecified; I48.2 - Chronic atrial fibrillation (3) Shortness of breath Current Visit: Yes Status: Acute Plan: Possible CHF echocardiogram ordered start Lasix stress test has also been ordered labs reviewed possible discharge by tomorrow or today pending upon the stress test and the echo report Discharge Plan: Home Plan to discharge in: 24 Hours
[2022-03-28] MEDS: APIXABAN 5 MG TABLET PO SCH ×2 (09:17→20:56)
[2022-03-28] MEDS: FUROSEMIDE 40 MG TABLET PO SCH ×2 (09:19→09:25)
[2022-03-28] MEDS: VALSARTAN 160 MG TAB PO SCH (09:24)
[2022-03-28] MEDS: AMLODIPINE 10 MG TAB PO SCH (09:25)
[2022-03-28] MEDS ORDERED: REGADENOSON 0.4 MG/5 ML SYR IV ONE (11:25)
--- NOTE | 2022-03-28 13:42 | RAD REPORT ---
EXAM DESCRIPTION: NM - Rest Stress Cardiac Imaging - 03/28/2022 1:28 pm CLINICAL HISTORY: Chest pain COMPARISON: None. TECHNIQUE: The patient was administered 10.7 mCi of Tc 99m Sestamibi prior to resting SPECT imaging of the heart. The patient was then administered 31.6 mCi of Tc 99m Sestamibi following exercise or ph armacologic stress. Multiplanar SPECT images were reviewed. FINDINGS: The end diastolic volume is 224 ml, the end systolic volume is 146 ml, and the ejection fr action is 35 %. No stress-induced ischemic changes identifiable. Fixed defect along the inferior wall from base to ap ex is favored to be attenuation artifact from the diaphragm due to the overall enlargement of left ve ntricle. Scarring is possible. IMPRESSION: No stress-induced ischemic change identified. Fixed defect along the inferior wall is favored to be diaphragm attenuation artifact rather than scar ring. Enlarged end-diastolic volume of 224 milliliters with below normal ejection fraction 35%.
--- NOTE | 2022-03-28 13:48 | EKG ---
Test Date: 2022-03-27 Test Time: 13:50:20 [employer] Log[employer] Manager: RAISA MEASUREMENT RESULTS: Intervals: Rate: 94 MS: QRSD: 96 QT: 392 QTc: 490 [place]: P: MS: QRS: 64 T: 49 INTERPRETIVE STATEMENTS: Atrial fibrillation Nonspecific T wave abnormality, probably digitalis effect Prolonged QT Abnormal ECG Compared to ECG 08/06/2019 10:07:30 T-wave abnormality now present Prolonged QT interval now present Ventricular premature complex(es) no longer present Right-axis deviation no longer present Incomplete right bundle-branch block no longer present Electronically Signed On 03-28-22 13:46:02 CDT by Griffin Meraz
[2022-03-28] MEDS: METOPROLOL XL 50 MG TAB PO SCH (14:25)
--- NOTE | 2022-03-29 07:08 | TREADPHA ---
DX: CHEST PAIN Date of Study: 03/28/2022 Ht: 5' 9 " Wt: 232 lb 6.4 oz Consulting Physician: MYLES MEDICATIONS: NORVASC, ELIQUIS, LASIX, TOPROL XL HISTORY: 61 YEAR OLD MALE WITH COMPLAINTS OF CHEST PAIN. HISTORY OF HYPERTENSION, ATRIAL FIBRILLATION, NON SMOKER, NON DRINKER. PHYSICIAL EXAMINATION: RESTING B.P.: 130/69 RESTING H.R.: 81 RESTING EKG: ATRIAL FIBRILLATION, NON SPECIFIC T ABNORMALITY. PROTOCOL: LEXISCAN EXERCISE TIME: 3:30 B.P. AT PEAK STRESS: 112/69 IMPRESSION: LEXISCAN INJECTED FOLLOWED BY CARDIOLITE PER PROTOCOL. SEE NUCLEAR MEDICINE REPORT. NO SUPRAVENTRICULAR OR VENTRICULAR TACHYCARDIA. PATIENT IN ATRIAL FIBRILLATION. PATIENT REPORTS NO CHEST PAIN OR SHORTNESS OF BREATH. NO EKG CHANGES WITH LEXISCAN.
--- NOTE | 2022-03-29 07:11 | ECHO ---
HEIGHT: 5 ft 9 in WEIGHT: 232 lb 6.4 oz DATE OF STUDY: 03/28/[address]: Omid Hinton MD 2-DIMENSIONAL: YES M.MODE: YES DOPPLER: YES COLOR FLOW: YES TDS: YES PORTABLE: YES DEFINITY: NO BUBBLE STUDY: NO DIAGNOSIS: ATRIAL FIBRILLATION CARDIAC HISTORY: CATHERIZATION: NO SURGERY: NO PROSTHETIC VALVE: NO PACEMAKER: NO MEASUREMENTS (cm) DIASTOLIC (NORMALS) SYSTOLIC (NORMALS) IVSd 1.4 (0.6-1.2) LA Diam 3.8 (1.9-4.0) LVEF 55-60% LVIDd 5.4 (3.5-5.7) LVIDs 4.3 (2.0-3.5) %FS 21% LVPWd 1.3 (0.6-1.2) Ao Diam 2.8 (2.0-3.7) 2 DIMENSIONAL ASSESSMENT: RIGHT ATRIUM: NORMAL LEFT ATRIUM: NORMAL RIGHT VENTRICLE: NORMAL LEFT VENTRICLE: NORAML TRICUSPID VALVE: MITRAL VALVE: NORMAL PULMONIC VALVE: NORMAL AORTIC VALVE: NORMAL PERICARDIAL EFFUSION: NONE AORTIC ROOT: NORMAL LEFT VENTRICULAR WALL MOTION: NORMAL DOPPLER/COLOR FLOW: SEE BELOW COMMENTS: NORMAL LEFT VENTRICULAR EJECTION FRACTION 55-60%. NORMAL WALL MOTION. MILD TRICUSPID REGURGITATION. TECHNOLOGIST: Emeka JARVIS
[2022-03-29] MEDS: APIXABAN 5 MG TABLET PO SCH (08:07)
[2022-03-29] MEDS: FUROSEMIDE 40 MG TABLET PO SCH (08:07)
[2022-03-29] MEDS: METOPROLOL XL 50 MG TAB PO SCH (08:08)
[2022-03-29] MEDS: AMLODIPINE 10 MG TAB PO SCH (08:08)
[2022-03-29] MEDS: VALSARTAN 160 MG TAB PO SCH (08:08)
[2022-03-29 08:09] VITALS: BP 143/77
--- NOTE | 2022-03-29 09:00 | P.DS ---
Admission Date: 03/27/22 Discharge Date: 03/29/22 Disposition: ROUTINE DISCHARGE Discharge Condition: FAIR Reason for Admission: Shortness of breath last night - Problems (1) Acute diastolic heart failure Status: Acute (2) Chest pain Status: Acute (3) Atrial fibrillation Status: Acute Qualifiers: Atrial fibrillation type: unspecified chronic Qualified Code(s): I48.20 - Chronic atrial fibrillation, unspecified; I48.2 - Chronic atrial fibrillation (4) Hypertension Status: Chronic Brief History of Present Illness: Patient is 61 years of age with a history of hypertension and A. fib was having progressive dyspnea for the 1 week came into the hospital suddenly because of worsening shortness of breath and sudden onset chest pressure. Blood pressure in the ED was significantly elevated. Patient reported compliance with his medication. He has not been on any anticoagulants and does not follow-up with any physicians. He stated he recently moved from [facility]. Chest x-ray done in the ED showed no acute process. BNP was mildly elevated. Patient was hospitalized for further evaluation and management. Hospital Course: Patient admitted to the medical floor. His heart rate was mildly rapid. His troponin was negative. Acute CHF suspected. Patient started on Lasix therapy. He was seen in consultation by cardiology for chest pain and shortness of serafin ath. Atrial fibrillation was rate controlled with his home dose metoprolol. Patient started on Eliquis per cardiology recommendation. Nuclear stress test performed due to his complaint of chest pain and did not show any cardiac ischemia. ACS has been ruled out. Patient heart rate is controlled. He states that his shortness of breath has resolved. Echocardiogram showed normal EF. Acute diastolic heart failure suspected and currently appears compensated for CHF. Patient is deemed stable for discharge. Eliquis and Lasix are additional medications prescribed on discharge. He is informed to follow-up with a philanthropy officer for further management as outpatient and also to find a PCP to manage his other medical conditions.. Vital Signs/Physical Exam: Temp Pulse Resp BP Pulse Ox 97.6 F 94 H 18 143/77 H 96 03/29/22 04:00 03/29/22 08:08 03/29/22 04:00 03/29/22 08:08 03/29/22 04:00 General: Alert, In no apparent distress, Oriented x3 HEENT: Mucous membr. moist/pink Neck: Supple, JVD not distended Respiratory: Clear to auscultation bilaterally, Normal air movement Cardiovascular: No edema, Regular rate/rhythm, No murmurs, Irregular heart rate/rhythm Capillary refill: <2 Seconds Gastrointestinal: Normal bowel sounds, Soft and benign, Non-distended, No ascites Musculoskeletal: No swelling, No tenderness Integumentary: No rashes Neurological: Normal speech, Normal strength at 5/5 x4 extr Laboratory Data at Discharge: WBC 7.1 K/uL (4.3-10.9) 03/28/22 05:20 Hgb 16.2 g/dL (13.6-17.9) 03/28/22 05:20 Hct 45.7 % (39.6-49.0) 03/28/22 05:20 Plt Count 133 K/uL (152-406) L 03/28/22 05:20 PT 11.5 SECONDS (9.5-12.5) 03/27/22 13:40 INR 1.04 03/27/22 13:40 Sodium 141 mmol/L (136-145) 03/28/22 05:20 Potassium 3.4 mmol/L (3.5-5.1) L 03/28/22 05:20 BUN 17 mg/dL (7-18) 03/28/22 05:20 Creatinine 0.75 mg/dL (0.55-1.3) 03/28/22 05:20 Glucose 129 mg/dL (74-106) H 03/28/22 05:20 Total Bilirubin 1.0 mg/dL (0.2-1.0) 03/28/22 05:20 AST 30 U/L (15-37) 03/28/22 05:20 ALT 36 U/L (12-78) 03/28/22 05:20 Alkaline Phosphatase 70 U/L (45-117) 03/28/22 05:20 Triglycerides 53 mg/dL (<150) 03/28/22 05:20 Cholesterol 114 mg/dL (<200) 03/28/22 05:20 HDL Cholesterol 66 mg/dL (40-60) H 03/28/22 05:20 Cholesterol/HDL Ratio 1.73 03/28/22 05:20 Home Medications: Metoprolol Succinate 50 mg PO DAILY #30 tab.er.24h 08/07/19 Amlodipine [Norvasc*] 10 mg PO BEDTIME 03/27/22 Olmesartan Medoxomil 40 mg PO BEDTIME 03/27/22 hydroCHLOROthiazide [Hydrochlorothiazide] 25 mg PO BEDTIME 03/27/22 Apixaban [Eliquis] 5 mg PO BID #60 tablet 03/29/22 Furosemide [Lasix*] 40 mg PO DAILY #30 tab 03/29/22 New Medications: Apixaban [Eliquis] 5 mg PO BID #60 tablet Furosemide [Lasix*] 40 mg PO DAILY #30 tab Diet: AHA Activity: Ad sridhar Followup: CINDY STARR [Primary Care Provider] - 1 Week (Call to schedule appointment) Time spent managing pt's care (in minutes): 35
[2022-03-29 09:27] VITALS: TEMP 98.9
--- OUTSIDE RECORDS SUMMARY | 2022-04-06 21:35 | XMS REPORT | Continuity of Care Document ---
:1960 Author Organization [facility] t Address [address] [place] [address] [address]. [address] [place] [address] Care Team Providers Name Role Phone Unavailable Unavailable Unavailable Problems This patient has no known problems. Allergies, Adverse Reactions, Alerts This patient has no known allergies or adverse reactions. Medications This patient has no known medications. Procedures This patient has no known procedures. Results Test Description Test Time Test Comments Results Result [facility] e Comments SURGICAL SPECIMENS 2019-08-26 17:11:00 --------RUN DATE: 08/26/19 [facility] - LAB PAGE 1 RUN TIME: 1711 Specimen Inquiry RUN USER: INTERFACE --------PATIENT: VIKASH ZURITA LOC: ZNGabrielleNWSCRO U #: [id number] AGE/SX: 59/M ROOM: RE08/23/19REG DR: Meliton Solano MD : 58 BED: DIS: STATUS: REG REF TLOC: -------- SPEC #: [id number] RECD: 08/22/19 STATUS: ARMIN REAGAN #: [id number] KURTIS: 08/22/190000 SUBM DR: Meliton Solano MD ENTERED: 08/23/19 SP TYPE: SURG OTHR DR: ORDERED: LEVEL II, PATH SPEC, H E STAIN TISSUES: A. HERNIA SAC - Umbilical hernia sac CLINICAL HISTORY Operative Procedure: Umbilical hernia repair with mesh FINAL DIAGNOSIS Umbilical region, hernia sac, herniorrhaphy: Fibroconnective Tissue Electronically signed by: Darlene Michel MD GROSS DESCRIPTION The laboratory receives, in a partially formalin-filled container labeled "umbilical hernia sac", a 3.0 x 2.8 x 1.4 cm portion of ingram-yellow adipose tissue with a surrounding ingram-pink, saccular structure. The lining is ingram-pink and wrinkled; there is neither mass nor lesion. Refrigeration Service Inspector sections are submitted by the MIGUEL ÁNGEL in cassette A1. TR 08/23/2019 06:16 PM MICROSCOPIC DESCRIPTION Sections from the umbilical hernia sac reveal fibroconnective tissue. There is neither inflammation nor malignancy. Signed SIGNATURE ON FILE Cecy Michel 08/26/19 1711 -------- END OF REPORT
== END 2022-03-29 11:09 | disposition home or self-care (01) | DRG 291 ==
LOC: ER 12:14 → ERHOLD 15:51 → 2ND 19:12
PROVIDERS: ADMIT Internal Medicine Sleep Medicine; ATTEND Internal Medicine Sleep Medicine
DX: I11.0 Hypertensive heart disease with heart failure (principal); I50.31 Acute diastolic (congestive) heart failure; I48.20 Chronic atrial fibrillation, unspecified; Z20.822 Contact with and (suspected) exposure to COVID-19
CPT/HCPCS: 36415; 71045; 78452; 80048; 80053; 80061; 80076; 83880; 84484; 85025; 85610; 93005; 93017; 93306; 96365; 99285; A9500; J1940; J2785; U0003

== ENCOUNTER 2023-11-07 08:48 | Observation (INO) | payer OTHER ==
[2023-11-07 09:17] LABS: Absolute Lymphocytes (CBC) 2.5 K/uL (0.7-4.9); Hematocrit 46.8 % (39.6-49.0); Lymphocytes % 26.5 % (15.3-44.8); MCV 93.1 fL (80-100); MPV 9.7 fL (7.6-11.3); Platelets 184 thou/uL (152-406); RBC Red Blood Cell Count 5.03 M/uL (4.33-5.43)
[2023-11-07 09:32] LABS: Potassium 4.2 mEq/L (3.5-5.1); Troponin High Sensitivity 50.2 pg/mL (<58.9)
[2023-11-07 09:38] LABS: Blood Morphology Comment NOT SEEN (NOT SEEN); Platelet Estimate ADEQ
--- NOTE | 2023-11-07 09:56 | RAD REPORT ---
EXAM DESCRIPTION: RAD - Chest Single View - 11/07/2023 9:44 am CLINICAL HISTORY: SOB Chest pain. COMPARISON: Chest Single View dated 10/26/2023; Chest Single View dated 03/27/2022; Chest Single View d ated 08/06/2019 FINDINGS: Portable technique limits examination quality. Mild interstitial pulmonary edema. The heart is mildly enlarged in size. No displaced fractures. IMPRESSION: Mild CHF.
--- NOTE | 2023-11-07 10:24 | EDPHYS ---
Physician Documentation [facility] Name: Parrish Hickey Age: 63 yrs Sex: Male : 1960 Arrival Date: 11/07/2023 Time: 08:48 Bed 6 Private MD: ED Physician Sony Alvares HPI: 11/07 10:24 This 63 yrs old Male presents to ER via Ambulatory with complaints of Breathing ms3 Difficulty. 10:24 63-year-old male with past medical history of atrial fibrillation, congestive heart ms3 failure, gout, hypertension presents to the emergency department for shortness of breath that began 4 days prior to arrival. Patient denies pain at this time. Patient states that shortness of breath is worse with laying flat or exertion. Patient denies fevers, nausea, vomiting. Patient endorses chest tightness. Historical: - Allergies: 09:02 No Known Allergies; ll1 - PMHx: 09:02 Atrial fibrillation; Congestive heart failure; Gout; Hypertension; ll1 - PSHx: 09:02 hernia; ll1 - Immunization history:: Adult Immunizations up to date. - Social history:: Smoking status: Patient denies any tobacco usage or history of. ROS: 10:24 Constitutional: Negative for fever, and chills. Neck: Negative for injury, pain, and ms3 swelling, Cardiovascular: Negative for chest pain, and palpitations. Abdomen/GI: Negative for abdominal pain, nausea, vomiting, diarrhea, and constipation, MS/Extremity: Negative for injury and deformity, Skin: Negative for injury, rash, and discoloration, 10:24 Respiratory: Positive for shortness of breath, Exam: 10:24 Constitutional: This is a well developed, well nourished patient who is awake, alert, ms3 and in no acute distress. Head/Face: Normocephalic, atraumatic. Chest/axilla: Normal chest wall appearance and motion. Nontender with no deformity. Cardiovascular: Regular rate and rhythm with a normal S1 and S2. No gallops, murmurs, or rubs. Normal PMI, no JVD. No pulse deficits. 10:24 Skin: Warm, dry with normal turgor. Normal color with no rashes, no lesions, and no evidence of cellulitis. 10:24 Respiratory: the patient does not display signs of respiratory distress, Respirations: normal, Breath sounds: rales, that are mild, are located in both bases, 10:41 ECG was reviewed by the Attending Physician. ms3 Vital Signs: 09:02 BP 156 / 92; Pulse 98; Resp 20; Temp 97.8; Pulse Ox 93% on R/A; Weight 111.13 kg; ll1 Height 5 ft. 10 in. ; Pain 3/10; 09:08 BP 148 / 97; Pulse 94; Resp 24; Pulse Ox 87% on R/A; ld1 09:48 BP 146 / 88; Pulse 94; Resp 18; Pulse Ox 94% on 2 lpm NC; ph 12:02 BP 153 / 76; Pulse 101; Resp 18; Pulse Ox 93% on 3 lpm NC; ld1 13:00 BP 144 / 86; Pulse 94; Resp 18; Pulse Ox 93% on 3 lpm NC; me1 14:00 BP 166 / 94; Pulse 98; Resp 22; Pulse Ox 92% on 3 lpm NC; me1 15:00 BP 148 / 87; Pulse 89; Resp 21; Pulse Ox 92% on 3 lpm NC; me1 16:00 BP 159 / 90; Pulse 92; Resp 21; Pulse Ox 91% on 3 lpm NC; me1 17:00 BP 169 / 84; Pulse 102; Resp 25; Pulse Ox 93% on 3 lpm NC; me1 09:02 Body Mass Index 35.15 (111.13 kg, 177.8 cm) ll1 09:02 Pain Scale: Adult ll1 MDM: 09:23 Patient medically screened. ms3 10:24 Differential diagnosis: CHF exacerbation, Myocardial Infarction pneumonia, pulmonary ms3 edema. Data reviewed: vital signs, nurses notes, lab test result(s), EKG, radiologic studies, and as a result, I will admit patient. Consideration of Admission/Observation Patient was admitted/placed on observation. Management of patient was discussed with the following: Hospitalist: Dr Bauman. I considered the following discharge prescriptions or medication management in the emergency department Medications were administered in the Emergency Department. See MAR. Independent interpretation of the following test(s) in the Emergency Department EKG: See my EKG interpretation above X-Ray: My interpretation is CXR image reviewed by me shows pulmonary edema. Counseling: I had a detailed discussion with the patient and/or guardian regarding the historical points, exam findings, and any diagnostic results supporting the discharge/admit diagnosis, lab results, radiology results, the need for further work-up and treatment in the hospital. ED course: Discussed necessity for admission with patient his . They understand and agree with plan. All questions were answered. 11/07 09:01 Order name: Basic Metabolic Panel; Complete Time: 09:57 ld1 11/07 09:01 Order name: CBC with Diff; Complete Time: 09:57 ld1 11/07 09:01 Order name: Troponin HS; Complete Time: 09:57 ld1 11/07 09:21 Order name: Manual Differential; Complete Time: 09:57 EDMS 11/07 09:24 Order name: NT PRO-BNP; Complete Time: 09:57 ms3 11/07 11:19 Order name: Basic Metabolic Panel EDMS 11/07 11:19 Order name: Basic Metabolic Panel EDMS 11/07 11:19 Order name: Basic Metabolic Panel EDMS 11/07 11:19 Order name: Basic Metabolic Panel EDMS 11/07 11:19 Order name: Basic Metabolic Panel EDMS 11/07 11:19 Order name: Basic Metabolic Panel EDMS 11/07 11:19 Order name: Basic Metabolic Panel EDMS 11/07 11:19 Order name: Basic Metabolic Panel EDMS 11/07 11:19 Order name: CBC with Automated Diff EDMS 11/07 11:19 Order name: CBC with Automated Diff EDMS 11/07 11:19 Order name: CBC with Automated Diff EDMS 11/07 11:19 Order name: CBC with Automated Diff EDMS 11/07 11:19 Order name: CBC with Automated Diff EDMS 11/07 11:19 Order name: CBC with Automated Diff EDMS 11/07 11:19 Order name: CBC with Automated Diff EDMS 11/07 11:19 Order name: CBC with Automated Diff EDMS 11/07 11:19 Order name: Magnesium EDMS 11/07 11:19 Order name: Magnesium EDMS 11/07 11:19 Order name: Magnesium EDMS 11/07 11:19 Order name: Magnesium EDMS 11/07 11:19 Order name: Magnesium EDMS 11/07 11:19 Order name: Magnesium EDMS 11/07 11:19 Order name: Magnesium EDMS 11/07 11:19 Order name: Magnesium EDMS 11/07 11:19 Order name: Phosphorus EDMS 11/07 11:19 Order name: Phosphorus EDMS 11/07 11:19 Order name: Phosphorus EDMS 11/07 11:19 Order name: Phosphorus EDMS 11/07 11:19 Order name: Phosphorus EDMS 11/07 11:19 Order name: Phosphorus EDMS 11/07 11:19 Order name: Phosphorus EDMS 11/07 11:19 Order name: Phosphorus EDMS 11/07 11:19 Order name: Troponin High Sensitivity EDMS 11/07 11:19 Order name: Troponin High Sensitivity EDMS 11/07 11:19 Order name: Troponin High Sensitivity EDMS 11/07 09:01 Order name: XRAY Chest (1 view); Complete Time: 09:57 ld11/07 09:01 Order name: EKG; Complete Time: 09:02 11/07 09:01 Order name: Cardiac monitoring; Complete Time: 09:08 11/07 09:01 Order name: EKG - Nurse/Tech; Complete Time: 09:08 11/07 09:01 Order name: IV Saline Lock; Complete Time: 09:08 11/07 09:01 Order name: Labs collected and sent; Complete Time: 09:08 11/07 09:01 Order name: O2 Per Protocol; Complete Time: 09:08 11/07 09:01 Order name: O2 Sat Monitoring; Complete Time: 09:08 ld EC:41 Rate is 97 beats/min. Rhythm is irregularly irregular. Left axis deviation noted. ms3 Clinical impression: Atrial Fibrillation. Interpreted by me. Reviewed by me. Administered Medications: 09:47 CANCELLED (Physician Discretion): [id number] mg PO once ms3 10:30 Drug: Furosemide IVP 40 mg IVP once; give over 2 minutes Route: IVP; Site: right ld1 antecubital; 14:46 Follow up: Response: No adverse reaction me1 Disposition Summary: 11/07/23 10:23 Hospitalization Ordered Notes: Hospitalization Status: Inpatient Admission ms3 Provider: Mainor Sorto ms3 Condition: Stable ms3 Problem: new ms3 Symptoms: are unchanged ms3 Bed/Room Type: Standard ms3 Location: Telemetry/MedSurg (Inpatient)(11/07/23 16:34) bd Room Assignment: 413(02/20/24 16:34) bd Diagnosis - Heart failure, unspecified ms3 - Respiratory failure, unspecified with hypoxia ms3 Forms: - Medication Reconciliation Form ms3 - SBAR form ms3 - Leadership Thank You Letter ms3 Signatures: Dispatcher [employer] EDHetal Grimaldo Lynsay, RN RN ll1 Sony Alvares, DO ms3 Zonia Alvares RN RN ld1 Idalmis Morales RN me1 Corrections: (The following items were deleted from the chart) 09:47 09:47 Doxycycline PO 100 mg PO once ordered. ms3 ms3 13:30 10:23 Telemetry/MedSurg (Inpatient) ms3 bd 13:30 10:23 ms3 bd 16:34 13:30 [facility] ER HOLD bd bd 16:34 13:30 ERHOLD- bd bd
--- NOTE | 2023-11-07 10:24 | ER ---
Nurse's Notes [facility] Name: Parrish Hickey Age: 63 yrs Sex: Male : 1960 Arrival Date: 11/07/2023 Time: 08:48 Bed 6 Private MD: Diagnosis: Heart failure, unspecified;Respiratory failure, unspecified with hypoxia Presentation: 11/07 09:02 Chief complaint: Patient states: SOB, worse when laying flat since his visit here last ll1 week. Fever 2 days ago. Worried about CHF or possible pneumonia. Coronavirus screen: Client denies travel out of the [place] in the last 14 days. difficulty breathing, shortness of breath, Client presents with at least one sign or symptom that may indicate coronavirus-19. Standard/surgical mask placed on the client. Ebola Screen: Patient denies travel to an Ebola-affected area in the 21 days before illness onset. Initial Sepsis Screen: Does the patient meet any 2 criteria? No. Patient's initial sepsis screen is negative. Does the patient have a suspected source of infection? Yes: Productive cough/pneumonia. Risk Assessment: Do you want to hurt yourself or someone else? Patient reports no desire to harm self or others. Onset of symptoms was October 31, 2023. 09:02 Method Of Arrival: Ambulatory ll1 09:02 Acuity: QUANG 2 ll1 Triage Assessment: 16:34 Respiratory: the patient has moderate shortness of breath. ld1 Historical: - Allergies: 09:02 No Known Allergies; ll1 - PMHx: 09:02 Atrial fibrillation; Congestive heart failure; Gout; Hypertension; ll1 - PSHx: 09:02 hernia; ll1 - Immunization history:: Adult Immunizations up to date. - Social history:: Smoking status: Patient denies any tobacco usage or history of. Screenin:08 [facility] ED Fall Risk Assessment (Adult) History of falling in the last 3 months, ld1 including since admission No falls in past 3 months (0 pts). Abuse screen: Denies threats or abuse. Denies injuries from another. Nutritional screening: No deficits noted. Tuberculosis screening: No symptoms or risk factors identified. Assessment: 09:08 General: Appears in no apparent distress. comfortable, Behavior is calm, cooperative, ld1 appropriate for age. Pain: Denies pain. Neuro: Level of Consciousness is awake, alert, obeys commands, Oriented to person, place, time, situation. Cardiovascular: Capillary refill < 3 seconds Patient's skin is warm and dry. Rhythm is atrial fibrillation Chest pain is denied. Respiratory: Airway is patent Respiratory effort is even, labored, Breath sounds are clear bilaterally. Respiratory: Reports shortness of breath at rest on exertion. GI: Abdomen is round non-distended. : No signs and/or symptoms were reported regarding the genitourinary system. EENT: No signs and/or symptoms were reported regarding the EENT system. Derm: No signs and/or symptoms reported regarding the dermatologic system. Musculoskeletal: No signs and/or symptoms reported regarding the musculoskeletal system. 09:13 Reassessment: Pt SpO2 87% RA. Placed pt on 3L NC. ld1 Vital Signs: 09:02 BP 156 / 92; Pulse 98; Resp 20; Temp 97.8; Pulse Ox 93% on R/A; Weight 111.13 kg; ll1 Height 5 ft. 10 in. ; Pain 3/10; 09:08 BP 148 / 97; Pulse 94; Resp 24; Pulse Ox 87% on R/A; ld1 09:48 BP 146 / 88; Pulse 94; Resp 18; Pulse Ox 94% on 2 lpm NC; ph 12:02 BP 153 / 76; Pulse 101; Resp 18; Pulse Ox 93% on 3 lpm NC; ld1 13:00 BP 144 / 86; Pulse 94; Resp 18; Pulse Ox 93% on 3 lpm NC; me1 14:00 BP 166 / 94; Pulse 98; Resp 22; Pulse Ox 92% on 3 lpm NC; me1 15:00 BP 148 / 87; Pulse 89; Resp 21; Pulse Ox 92% on 3 lpm NC; me1 16:00 BP 159 / 90; Pulse 92; Resp 21; Pulse Ox 91% on 3 lpm NC; me1 17:00 BP 169 / 84; Pulse 102; Resp 25; Pulse Ox 93% on 3 lpm NC; me1 09:02 Body Mass Index 35.15 (111.13 kg, 177.8 cm) ll1 09:02 Pain Scale: Adult ll1 ED Course: 08:50 Patient arrived in ED. rg4 08:56 Sony Alvares DO is Attending Physician. ms3 09:02 Arm band placed on Patient placed in an exam room, on a stretcher. ll1 09:04 Triage completed. ll1 09:08 Zonia Alvares, RN is Primary Nurse. ld1 09:08 Patient has correct armband on for positive identification. Placed in gown. Bed in low ld1 position. Call light in reach. Side rails up X2. bus monitor on. Pulse ox on. NIBP on. Notified ED physician of. Door closed. Noise minimized. Warm blanket given. 09:08 No provider procedures requiring assistance completed. Inserted saline lock: 20 gauge ld1 in right antecubital area, using aseptic technique. Blood collected. 09:46 XRAY Chest (1 view) In Process Unspecified. EDMS 10:22 Mainor Sorto MD is Hospitalizing Provider. ms3 16:34 Patient admitted, IV remains in place. ld1 17:18 Provided Education on: POC. Verbalized understanding.. me1 Administered Medications: 09:47 CANCELLED (Physician Discretion): [id number] mg PO once ms3 10:30 Drug: Furosemide IVP 40 mg IVP once; give over 2 minutes Route: IVP; Site: right ld1 antecubital; 14:46 Follow up: Response: No adverse reaction me1 Medication: 09:08 VIS not applicable for this client. ld1 Outcome: 10:23 Decision to Hospitalize by Provider. ms3 16:34 Admitted to ER Hold. Please see [facility] for further documentation. ld1 16:34 Condition: stable 16:34 Instructed on the need for admit, 17:19 Patient left the ED. me1 Signatures: Dispatcher [employer] Rina Rice, RN RN Danielle Neves rg4 Eze Mcmillan RN RN ll1 Sony Alvares DO DO ms3 Zonia Alvares, RN RN ld1 Idalmis Morales RN RN ak1
[2023-11-07] MEDS ORDERED: FUROSEMIDE 40 MG/4 ML VIAL ONE ×2 (10:28→16:39)
--- NOTE | 2023-11-07 10:51 | P.HP ---
Certification for Inpatient Patient admitted to: Observation With expected LOS: >2 Midnights Patient will require the following post-hospital care: None Practitioner: I am a practitioner with admitting privileges, knowledge of patient current condition, hospital course, and medical plan of care. Services: Services provided to patient in accordance with Admission requirements found in Title 42 Section 412.3 of the Code of Federal Regulations Patient History Date of Service: 11/07/23 Reason for admission: CHF exacerbation History of Present Illness: Parrish Hickey is a 63-year-old male with past medical history of atrial fibrillation, congestive heart failure, gout, hypertension who presents to the ED with complaints of shortness of breath which is worse when lying flat. He complains of a fever 2 days ago withworsening congestive heart failure symptoms thinking it could be pneumonia. On examination, he started coughing, has expiratory wheezing, but was able to speak clearly. He reports being admitted earlier this month and seems to have the same problem. He reports taking his medications as directed since that discharge. He was given Lasix in the ED that has been effective. Initial vitals BP 156 / 92; Pulse 98; Resp 20; Temp 97.8; Pulse Ox 93% on R/A Laboratory evaluation serum glucose 158, BNP 1317, eosinophil 8.0. Chest x-ray reports "Mild interstitial pulmonary edema. The heart is mildly enlarged in size. No displaced fractures. IMPRESSION: Mild CHF" Parrish will be admitted to hospitalist service for further evaluation and treatment of CHF exacerbation. Allergies No Known Allergies Allergy (Verified 08/06/19 12:32) Home Medications: Sotalol HCl [Betapace*] 80 mg PO BID 6AM 6PM tab 10/26/23 Apixaban [Eliquis] 5 mg PO BID #60 tab 10/27/23 Olmesartan Medoxomil 40 mg PO BEDTIME #30 tab 10/27/23 Potassium Chloride 20 meq PO BID #60 tab 10/27/23 Furosemide [Lasix*] 40 mg PO DAILY 11/07/23 - Past Medical/Surgical History Diabetic: No -: Hypertension -: Atrial fibrillation -: Congestive heart failure -: Hernia repair - Social History Alcohol use: No CD- Drugs: No Caffeine use: No Review of Systems General: Fever Respiratory: Cough, Shortness of Breath Physical Examination - Physical Exam General: Alert, In no apparent distress, Oriented x3 HEENT: Atraumatic, Normocephalic, PERRLA Neck: Supple, 2+ carotid pulse no bruit, JVD not distended Respiratory: Normal air movement, Expiratory wheezes Cardiovascular: No edema, Normal pulses, Regular rate/rhythm, Normal S1 S2 Capillary refill: <2 Seconds Gastrointestinal: Normal bowel sounds, Soft and benign Musculoskeletal: No clubbing, No swelling, No contractures, No erythema Integumentary: No rashes, No breakdown, No significant lesion Neurological: Normal speech, Normal strength at 5/5 x4 extr, Normal tone - Studies Laboratory Data (last 24 hrs) 11/07/23 11/07/23 09:06 09:06 WBC 9.40 Hgb 16.4 Hct 46.8 Plt Count 184 Sodium 144 Potassium 4.2 BUN 14 Creatinine 0.87 Glucose 158 H Assessment and Plan - Plan Assessment and Plan CHF exacerbation Atrial fibrillation Chest x-ray reports "Mild interstitial pulmonary edema. The heart is mildly enlarged in size. No displaced fractures. IMPRESSION: Mild CHF" Lasix given in the ED Lasix BID Restart home medications on 3 LNC in the ED BNP 1317 Continue Sotalol I and O, daily weight COPD ipratropium, albuterol tessalon perle, mucinex Hyperglycemic A1C pending Serum glucose 148 elevate at previous admission Hx Hypertension Gout restart home medication Initial vitals BP 156 / 92 DVT ppx lovenox Full code LOS 2 days Discharge Plan: Home Plan to discharge in: 48 Hours - Advance Directives Does patient have a Living Will: No Does patient have a Durable POA for Healthcare: No Time Spent Managing Pts Care (In Minutes): 50
[2023-11-07] MEDS ORDERED: ALBUTEROL 2.5 MG/3 ML NEB SOL NEB PRN (11:13)
[2023-11-07 16:27] VITALS: BMI 35.1
[2023-11-07] MEDS: FUROSEMIDE 40 MG/4 ML VIAL IV SCH (17:59)
[2023-11-08] MEDS: IPRATROPIUM BROM 0.5MG/2.5ML NEB PRN (04:10)
[2023-11-08] MEDS: LEVALBUTEROL 0.63 MG/3 ML NEB NEB PRN (04:10)
[2023-11-08] MEDS: SOTALOL HCL 80 MG TAB PO SCH (05:05)
[2023-11-08 06:57] LABS: Absolute Lymphocytes (CBC) 2.2 K/uL (0.7-4.9); Hematocrit 46.9 % (39.6-49.0); Lymphocytes % 27.7 % (15.3-44.8); MCV 94.5 fL (80-100); MPV 9.5 fL (7.6-11.3); Platelets 196 thou/uL (152-406); RBC Red Blood Cell Count 4.96 M/uL (4.33-5.43)
[2023-11-08 07:08] LABS: Magnesium 1.9 mg/dL (1.6-2.4); Phosphorus 3.3 mg/dL (2.5-4.9); Potassium 3.8 mEq/L (3.5-5.1)
[2023-11-08] MEDS: POTASSIUM CL SA 10 MEQ TAB PO ONE (07:57)
[2023-11-08] MEDS: APIXABAN 5 MG TABLET PO SCH (07:58)
[2023-11-08] MEDS: METHYLPREDNISOLONE 40 MG INJ IV ONE (10:32)
--- NOTE | 2023-11-08 14:18 | RAD REPORT ---
EXAM DESCRIPTION: RAD - Chest Single View - 11/08/2023 2:03 pm CLINICAL HISTORY: Follow up CHF COMPARISON: Chest Single View dated 11/07/2023; Chest Single View dated 10/26/2023; Chest Single View d ated 03/27/2022; Chest Single View dated 08/06/2019 FINDINGS: Lines: None. Lungs: Prominent interstitial markings slightly improved as well as some generalized haziness also im proved compared with 11/07/2023 . Pleural: No significant pleural effusions or pneumothorax. Cardiac: Similar mild cardiomegaly. Mediastinum: Within normal limits. Bones: No acute fractures. Other: None IMPRESSION: Edema appears improved since 11/07/2023.
[2023-11-08 16:29] VITALS: BP 153/76; TEMP 97.8; O2SAT 88
[2023-11-08] MEDS ORDERED: ENOXAPARIN 40 MG/0.4 ML SQ SCH (17:00)
--- NOTE | 2023-11-08 18:36 | P.DS ---
Admission Date: 11/07/23 Discharge Date: 11/08/23 Disposition: ROUTINE DISCHARGE Discharge Condition: GOOD Reason for Admission: CHF exacerbation Brief History of Present Illness: Parrish Hickey is a 63-year-old male with past medical history of atrial fibrillation, congestive heart failure, gout, hypertension who presents to the ED with complaints of shortness of breath which is worse when lying flat. He complains of a fever 2 days ago withworsening congestive heart failure symptoms thinking it could be pneumonia. On examination, he started coughing, has expiratory wheezing, but was able to speak clearly. He reports being admitted earlier this month and seems to have the same problem. He reports taking his medications as directed since that discharge. He was given Lasix in the ED that has been effective. Initial vitals BP 156 / 92; Pulse 98; Resp 20; Temp 97.8; Pulse Ox 93% on R/A Laboratory evaluation serum glucose 158, BNP 1317, eosinophil 8.0. Chest x-ray reports "Mild interstitial pulmonary edema. The heart is mildly enlarged in size. No displaced fractures. IMPRESSION: Mild CHF" Parrish will be admitted to hospitalist service for further evaluation and treatment of CHF exacerbation. Vital Signs/Physical Exam: Temp Pulse Resp BP Pulse Ox 97.8 F 88 18 153/76 H 95 11/08/23 16:00 11/08/23 17:05 11/08/23 16:00 11/08/23 17:05 11/08/23 16:00 Laboratory Data at Discharge: WBC 7.80 thou/uL (4.3-10.9) 11/08/23 05:50 Hgb 16.2 g/dL (13.6-17.9) 11/08/23 05:50 Hct 46.9 % (39.6-49.0) 11/08/23 05:50 Plt Count 196 thou/uL (152-406) 11/08/23 05:50 Sodium 136 mEq/L (136-145) D 11/08/23 05:50 Potassium 3.8 mEq/L (3.5-5.1) 11/08/23 05:50 BUN 15 mg/dL (7-18) 11/08/23 05:50 Creatinine 0.83 mg/dL (0.70-1.30) 11/08/23 05:50 Glucose 206 mg/dL (74-106) H 11/08/23 05:50 Phosphorus 3.3 mg/dL (2.5-4.9) 11/08/23 05:50 Magnesium 1.9 mg/dL (1.6-2.4) 11/08/23 05:50 Home Medications: Sotalol HCl [Betapace*] 80 mg PO BID 6AM 6PM tab 10/26/23 Apixaban [Eliquis] 5 mg PO BID #60 tab 10/27/23 Olmesartan Medoxomil 40 mg PO BEDTIME #30 tab 10/27/23 Potassium Chloride 20 meq PO BID #60 tab 10/27/23 Furosemide [Lasix*] 40 mg PO DAILY 11/07/23 Methylprednisolone [Medrol dosepack] 4 mg PO DIRECTED #1 wilver 11/08/23 New Medications: Methylprednisolone [Medrol dosepack] 4 mg PO DIRECTED #1 wilver Physician Discharge Instructions: Parrish Hickey presented to the ED with complaints of shortness of breath which is worsening when lying flat and fever for 2 days. He has tolerated Lasix with adequate urine output. Steroids administered today and feeling better, will continue at home. Follow-up with your PCP in 3 to 5 days for medication refills and any medication adjustments needed. 1. Please call and schedule a follow-up appointment with your PCP in 3-5 days - Please follow-up with your PCP for medication refills/adjustments 2. Continue heart healthy and diabetic diet 3. No activity restrictions 4. Return to ED if symptoms worsen New medication Medrol Dosepak Diet: AHA Activity: Ad sridhar Followup: NONE,NONE [Primary Care Provider] - (follow up in 3-5 days,call to schedule an appointment.)
--- NOTE | 2023-11-09 16:15 | EKG ---
Test Date: 2023-11-07 Test Time: 09:04:39 [employer] Driver: SUKHJINDER MEASUREMENT RESULTS: Intervals: Rate: 97 WA: QRSD: 102 QT: 354 QTc: 449 Traer: P: WA: QRS: -58 T: 103 INTERPRETIVE STATEMENTS: Atrial fibrillation with premature ventricular or aberrantly conducted complexes Incomplete right bundle branch block Left anterior fascicular block T wave abnormality, consider lateral ischemia Abnormal ECG Compared to ECG 10/27/2023 18:17:11 Ventricular premature complex(es) now present Left anterior fascicular block now present T-wave abnormality now present Possible ischemia now present Left-axis deviation no longer present Electronically Signed On 11-09-23 16:07:11 [employer] by Griffin Meraz
== END 2023-11-08 18:59 | disposition home or self-care (01) ==
LOC: ER 08:48 → ERHOLD 11:13 → 4TH 16:57
PROVIDERS: ADMIT Internal Medicine; ATTEND Internal Medicine
DX: I50.9 Heart failure, unspecified (principal); J96.91 Respiratory failure, unspecified with hypoxia; I10 Essential (primary) hypertension; M10.9 Gout, unspecified; R50.9 Fever, unspecified; J44.9 Chronic obstructive pulmonary disease, unspecified; R73.9 Hyperglycemia, unspecified
CPT/HCPCS: 93005; 85025 ×2; 80048 ×2; 36415; 83735; 84100; 83036; 84484 ×3; 83880; 71045 ×2; 94640 ×2; J1940 ×5; J7644 ×2; J7614 ×2; J2920; G0378

== ENCOUNTER 2024-09-09 10:05 | Day surgery (SDC) | payer OTHER ==
[2024-09-09 10:41] LABS: Absolute Basophils 0.1 K/uL (0-0.5); Absolute Eosinophils 0.2 K/uL (0-0.5); Absolute Neutrophil 6.4 K/uL (1.8-8.0); Basophils % 0.7 % (0-1.3); Eosinophils % 1.8 % (0-4.4); Hematocrit 52.5 % (39.6-49.0); Lymphocytes % 20.4 % (15.3-44.8); MCH 33.9 pg (27.0-35.0); MCHC 34.3 g/dL (32.0-36.0); MCV 98.9 fL (80-100); MPV 9.6 fL (7.6-11.3); Monocytes % 10.9 % (3.3-12.3); Neutrophils % 66.2 % (41.7-73.7); Nucleated Red Blood Cells % 0.3 % (0-0); Platelets 178 thou/uL (152-406); RBC Red Blood Cell Count 5.31 M/uL (4.33-5.43); Red Cell Distribution Width 14.9 % (12.1-15.2)
[2024-09-09] MEDS: Ringers Lactate 1,000 ML IV ONE (11:00)
[2024-09-09] MEDS ORDERED: propofoL 200 MG/20 ML VIAL IV ONE (12:33)
[2024-09-09] MEDS ORDERED: FENTANYL CITR 100 MCG/2 ML ONE (12:33)
[2024-09-09] MEDS ORDERED: MIDAZOLAM HCL 2 MG/2 ML INJ ONE (12:33)
[2024-09-09] MEDS ORDERED: LIDOCAINE 1% MPF 5 ML VIAL ONE (12:33)
[2024-09-09] MEDS: CEFAZOLIN SODIUM 1 GM/VIAL ONE (13:00)
--- NOTE | 2024-09-09 13:00 | P.BOP ---
Preoperative diagnosis: Large tender subQ back mass Postoperative diagnosis: same Primary procedure: Excisional biopsy of Large tender subQ back mass [id number] Estimated blood loss: <50cc Specimen: mass Findings: mass Anesthesia: General Complications: None Drain(s): RADHA drain (x2) Transferred to: Recovery Room Condition: Good
[2024-09-09] MEDS: CODEINE 30MG/APAP 300MG TAB ONE (16:00)
[2024-09-09 16:36] VITALS: BP 131/95; TEMP 97.4; O2SAT 96
--- NOTE | 2024-09-12 17:32 | OP ---
Date of Procedure: 09/09/2024 Surgeon: Rosendo Ingram MD Preoperative Diagnosis: Large tender subcutaneous back mass. Postoperative Diagnosis: Large tender subcutaneous back mass. Procedure: Excisional biopsy of large tender subcutaneous back mass 30 x 25 cm. Estimated Blood Loss: Less than 50 cc. Specimen: Mass. Anesthesia: General plus local. Drains: RADHA drain #10 x2. Indications: This is a case of a male, who came to us with a large mass on the upper back. The bene fits, alternatives, and risks of excision fully explained, which include, but not limited to, infecti on, bleeding, damage to adjacent structures, anesthesia complication, recurrence, [place], and even . He also understands this may not relieve any symptoms. He might need more than one surgical interv ention. He understood and signed a consent. Description Of Procedure: The area of concern was marked by me and the patient in the holding room. Patient was brought to the operating room, placed in supine position. Anesthesia was induced withou t complication. Back area was prepped and draped in a sterile fashion after patient was placed in la teral decubitus position with proper protection. After time-out, local anesthesia was applied follow ed by sharp incision of the skin. This is a very large mass. So we did remove it with gross negativ e margins. The mass extends superior and inferior as we elevated the flaps and then deep. Some of t he fascia of the muscle was involved but the muscle seems not to be involved. The mass was completel y removed in one unit. Area was irrigated. Hemostasis was obtained. Due to the large , w e suspected seroma might be forming. So we left 2 RADHA drains in that region connected to bulb suction and secured in place with 3-0 nylon. Patient tolerated the procedure well. Sponge counts and instr ument counts were correct. Patient was sent to Recovery in stable condition. HM/MODL Voice ID: [id number] Report ID: [id number]
--- NOTE | 2024-09-12 17:38 | DS ---
Date of Discharge: 09/09/2024 Diagnosis: Large tender subcutaneous back mass. Procedure: Excisional biopsy of large tender subcutaneous back mass. Condition: Stable. Disposition: Home. Activity: As tolerated. No heavy lifting. Discharge Instructions: Follow up in my office in 1 week. Call for appointment at [phone]. Keep a bárbara dry for 48 hours, then may shower. RADHA care explained. JADE/ZACHARIAH Voice ID: [id number] Report ID: [id number]
== END 2024-09-09 16:31 | disposition home or self-care (01) ==
LOC: OR 10:05
PROVIDERS: ATTEND Surgery
PROC: 0JB70ZZ Excision of Back Subcutaneous Tissue and Fascia, Open Approach (ICD-10-PCS; principal; 2024-09-09 12:57)
DX: D17.1 Benign lipomatous neoplasm of skin and subcutaneous tissue of trunk (principal)
CPT/HCPCS: 11406; 85025; 80048; 36415; 88304; J2704; J2003; J2250; J3010; J7120; J0690